=== PATIENT | male | born 1940 | race Caucasian/White ===

== ENCOUNTER 2017-02-11 10:09 | Emergency (ER) | payer MEDICARE, BC ==
[2017-02-11 11:01] VITALS: BP 165/67
[2017-02-11] MEDS ORDERED: Ketorolac 60 MG/2 ML SDV IM ONE (11:43)
--- NOTE | 2017-02-11 11:47 | EDM.PDOC ---
ED HPI GENERAL MEDICAL PROBLEM - General Chief Complaint: Back Pain or Injury Stated Complaint: BACK PAIN Time Seen by Provider: 02/11/17 11:00 Source of Information: Reports: Patient History Limitations: Reports: No Limitations - History of Present Illness INITIAL COMMENTS - FREE TEXT/NARRATIVE: pt fell down about 6 steps on Tuesday and he continues to have pain in the upper lumbar more on the left side. Onset: Gradual, Other ( Pt fell on tuesday. ) Duration: Day(s):, Other ( Pt is hurting alot when he gets up and down. ) Location: Reports: Back Associated Symptoms: Reports: No Other Symptoms, Other (pt has no radicular pain. ) - Related Data Allergies Allergy/AdvReac Type Severity Reaction Status Date / Time No Known Allergies Allergy Verified 02/11/17 11:02 Home Meds: Home Meds Metoprolol Succinate [Toprol XL 100mg] 100 mg PO QAM 11/19/12 [History] Potassium Chloride [Klor-Con M20] 20 meq PO QAM 11/19/12 [History] amLODIPine [Norvasc] 10 mg PO QAM 12/18/12 [History] hydrALAZINE [Apresoline] 75 mg PO BID 12/18/12 [History] Pravastatin Sodium [Pravachol] 1 tab PO BEDTIME 10/10/15 [History] Clopidogrel Bisulfate [Clopidogrel] 1 tab PO DAILY 02/11/17 [History] Past Medical History Cardiovascular History: Reports: High Cholesterol, Hypertension Musculoskeletal History: Reports: Back Pain, Chronic - Past Surgical History Cardiovascular Surgical History: Reports: Coronary Artery Stent Social & Family History - Tobacco Use Smoking Status *Q: Never Smoker Years of Tobacco use: 20 Used Tobacco, but Quit: No Month Tobacco Last Used: 11/1992 Second Hand Smoke Exposure: No - Alcohol Use Days Per Week of Alcohol Use: 7 Number of Drinks Per Day: 2 Total Drinks Per Week: 14 - Recreational Drug Use Recreational Drug Use: No ED ROS GENERAL - Review of Systems Review Of Systems: See Below Constitutional: Reports: No Symptoms HEENT: Reports: No Symptoms Respiratory: Reports: No Symptoms Cardiovascular: Reports: No Symptoms Endocrine: Reports: No Symptoms GI/Abdominal: Reports: No Symptoms : Reports: No Symptoms Musculoskeletal: Reports: Other (pt has pain in his upper lumbnar area. ) Skin: Reports: No Symptoms ED EXAM,LOWER BACK PAIN/INJURY - Physical Exam Exam: See Below Text/Narrative:: pt arrived with pain in his uppr lumbar area. He fell On Tuesday and landed on his but. Exam Limited By: No Limitations General Appearance: Alert, Anxious Ears: Normal TMs Nose: Normal Inspection Throat/Mouth: Normal Inspection Head: Atraumatic Neck: Normal Inspection Respiratory/Chest: No Respiratory Distress Cardiovascular: Regular Rate, Rhythm GI/Abdominal: Soft, Non-Tender (Male) Exam: Deferred Rectal (Males) Exam: Deferred Back Exam: Other (pt is tender on the upper lumbar area. It is more on the left than the right. He has some muscle spasm that can be felt. he was given torodol 60mg im. ) Extremities: Normal Inspection Course - Vital Signs Last Recorded V/S: Last Vital Signs Temp 36.3 C 02/11/17 11:15 Pulse 69 02/11/17 11:15 Resp 16 02/11/17 11:15 BP 165/67 H 02/11/17 11:15 Pulse Ox 100 02/11/17 11:15 - Orders/Labs/Meds Meds: Medications Discontinued Medications Generic Name Dose Route Start Last Admin Trade Name Freq PRN Reason Stop Dose Admin Ketorolac Tromethamine 60 mg 02/11/17 11:43 02/11/17 12:02 Toradol IM 02/11/17 11:44 60 mg ONETIME ONE Administration - Re-Assessments/Exams Free Text/Narrative Re-Assessment/Exam: 02/11/17 12:37 lumbar spine series was obtained which showed a compression fracture at L2. This is not an unstable fracture/ Departure - Departure Time of Disposition: 12:38 Disposition: Home, Self-Care 01 Condition: Fair Clinical Impression: Compression fracture of L2 - Discharge Information Referrals: Cody Frances MD [Primary Care Provider] - Forms: ED Department Discharge Care Plan Goals: cool pack to the lumbar area, flexeril 10 mg hs, tylenol for mild pain. norco 5 /325 q6h prn for pain --severe. avoid lifting and pulling. Use prunes and a stool softner.
--- NOTE | 2017-02-11 12:31 | CR ---
Lumbar Spine Min 4V HISTORY: recent fall and pain. FINDINGS: Vertebral body alignment is satisfactory. There is mild wedge compression fracture of the L 2 vertebral body. This was not present on the prior MRI lumbar spine exam dated 11/30/2010. No other compression fractures identified. There is prominent degenerative narrowing of the disc space at L5-S 1 with small anterior osteophytes and a couple millimeters of anterior subluxation. I cannot definiti vely identify pars interarticularis defects. Prominent atherosclerotic calcification is seen diffusel y along the abdominal aorta and visualized iliac vasculature. Endovascular stents are noted in the co mmon iliac artery bilaterally. IMPRESSION: 1. Degenerative changes most prominent at L4-5. 2. Mild wedge compression fracture of the L2 vertebral body has occurred since the MRI study of 11/30. This could be acute and is in the area of the patient's pain. 3. Possible mild grade 1 spondylolisthesis L4-5. 4. Atherosclerotic aorta and iliac vasculature. Endovascular stents are noted in the common iliac art tiffanie bilaterally.
== END 2017-02-11 13:53 | disposition home or self-care (01) ==
LOC: JP.ED 10:09
DX: S32.020A Wedge compression fracture of second lumbar vertebra, initial encounter for closed fracture (principal); I10 Essential (primary) hypertension; E78.00 Pure hypercholesterolemia, unspecified; Z87.891 Personal history of nicotine dependence; Z79.899 Other long term (current) drug therapy; W10.9XXA Fall (on) (from) unspecified stairs and steps, initial encounter
CPT/HCPCS: 72110; 96372; 99284; J1885; 99283

== ENCOUNTER 2018-08-03 13:37 | Emergency (ER) | payer MEDICARE, BC ==
--- NOTE | 2018-08-03 15:21 | EDM.PDOC ---
ED HPI GENERAL MEDICAL PROBLEM - General Chief Complaint: Lower Extremity Injury/Pain Stated Complaint: LEFT HIP PAIN Time Seen by Provider: 08/03/18 15:07 Source of Information: Reports: Patient History Limitations: Reports: No Limitations - History of Present Illness INITIAL COMMENTS - FREE TEXT/NARRATIVE: Patient presents describing worsening left hip pain or the last 10 days in the context of a left hip fracture in February of this year while living in [place]. He went to rehabilitation for several weeks, eventually transitioning to a walker and then a cane. He returned to this area in early May and the hip began to be uncomfortable. He was seen in the [facility] orthopedic clinic 10 days ago and was told that an MRI found that his hip was fractured. Further follow-up with orthopedics as arranged for next week. Because of worsening pain in the hip, he has now returned to the use of a walker. If he is sitting or lying down, he has no hip discomfort. Only when he is standing or walking is the hip very uncomfortable. He states that at times it feels as though the left leg is just going to give out. When not standing on his leg, he feels as though he has normal strength and range of motion in the hip, knee, ankle. Onset: Gradual Duration: Week(s): (2) Location: Reports: Lower Extremity, Left Quality: Reports: Ache, Burning, Sharp Severity: Moderate Improves with: Reports: None Worsens with: Reports: Movement Associated Symptoms: Reports: No Other Symptoms Left Hip Pain Score (Numeric/FACES): 8 - Related Data Allergies Allergy/AdvReac Type Severity Reaction Status Date / Time No Known Allergies Allergy Verified 08/03/18 15:31 Home Meds: Home Meds Metoprolol Succinate [Toprol XL 100mg] 100 mg PO QAM 11/19/12 [History] Potassium Chloride [Klor-Con M20] 20 meq PO QAM 11/19/12 [History] amLODIPine [Norvasc] 10 mg PO QAM 12/18/12 [History] hydrALAZINE [Apresoline] 75 mg PO BID 12/18/12 [History] Pravastatin Sodium [Pravachol] 1 tab PO BEDTIME 10/10/15 [History] Clopidogrel Bisulfate [Clopidogrel] 1 tab PO DAILY 02/11/17 [History] Past Medical History Cardiovascular History: Reports: High Cholesterol, Hypertension Musculoskeletal History: Reports: Back Pain, Chronic - Past Surgical History Cardiovascular Surgical History: Reports: Coronary Artery Stent Review of Systems - Review of Systems Review Of Systems: ROS reveals no pertinent complaints other than HPI. ED EXAM, GENERAL - Physical Exam Exam: See Below Exam Limited By: No Limitations General Appearance: Alert, No Apparent Distress (While seated.) Extremities: Other (Palpation along the lateral aspect of the hip is slightly uncomfortable. With the patient's seated on the ER cart, circumduction of the hip is not really uncomfortable. Passive flexion and extension of the hip is not uncomfortable.) Neurological: No Motor/Sensory Deficits Course - Vital Signs Last Recorded V/S: Last Vital Signs Temp 35.0 C L 08/03/18 15:25 Pulse 69 08/03/18 15:25 Resp 16 08/03/18 15:25 BP 121/60 08/03/18 15:25 Pulse Ox 96 08/03/18 15:25 - Re-Assessments/Exams Free Text/Narrative Re-Assessment/Exam: 08/03/18 22:30 It was unclear to me why an MRI that told him he had a hip fracture was not used to provide a different plan of care as his orthopedic visit? I will obtain a repeat left hip and pelvis set of images to verify status of the bones. No acute bony injury was seen on this imaging. I obtained the radiologist's report of his hip region and what was actually described was a fracture of the acetabulum which extended into the ileum. There was avascular necrosis noted in both femoral heads but especially so the left one. This would certainly explain pain with standing but little or no pain when not weightbearing status. I return to review these findings with the patient and actually gave him a copy of the MRI report. I fidelia a picture of where the fracture was through the acetabular region and also described the concept of avascular necrosis. He declines any current pain medication. I recommend he use his walker at all times when ambulatory. Fish keep his scheduled orthopedic appointments next week. He was discharged in good condition. Departure - Departure Time of Disposition: 17:32 Disposition: Home, Self-Care 01 Condition: Good Clinical Impression: Hip pain, left, Avascular necrosis of bone of left hip, Left acetabular fracture - Discharge Information *PRESCRIPTION DRUG MONITORING PROGRAM REVIEWED*: Not Applicable *COPY OF PRESCRIPTION DRUG MONITORING REPORT IN PATIENT ARNIE: Not Applicable Instructions: Avascular Necrosis Referrals: Cody Frances MD [Primary Care Provider] - Forms: ED Department Discharge Additional Instructions: Use your walker whenever you're up walking to improve stability and reduce risk of falling. Keep scheduled orthopedic appointments next week. Avoid excessive time up on her feet. Use Tylenol regularly for pain. If you have a sudden increase in pain in her left hip, this could mean that the hip bone is fractured completely. Return to ER if feeling worse in anyway.
[2018-08-03 15:22] VITALS: BP 121/60
--- NOTE | 2018-08-03 16:47 | CRLCR ---
INDICATION: Increasing left hip pain. TECHNIQUE: Single view pelvis and 2 view left hip. FINDINGS: Hip joints are symmetric and relatively well preserved. There is no fracture is identified. SI joints are symmetric and preserved. Vascular calcifications are noted bilaterally. IMPRESSION: Hip joints are symmetric and relatively well preserved. SI joints are preserved. Vascular calcifications are noted. No fracture is seen. Dictated by Florin Vanessa MD @ 08/03/2018 4:45:32 PM Dictated by: Florin Vanessa MD @ 08/03/2018 16:45:41 (Electronically Signed)
== END 2018-08-03 17:43 | disposition home or self-care (01) ==
LOC: JP.ED 13:37
DX: S32.402A Unspecified fracture of left acetabulum, initial encounter for closed fracture (principal); M87.28 Osteonecrosis due to previous trauma, other site; I10 Essential (primary) hypertension; E78.00 Pure hypercholesterolemia, unspecified; Z79.899 Other long term (current) drug therapy; X58.XXXA Exposure to other specified factors, initial encounter
CPT/HCPCS: 73502-LT; 99283-25

== ENCOUNTER 2018-08-14 08:21 | Inpatient (IN) | payer MEDICARE, BC ==
[~2018-08-14 08:21] MED LIST: Povidone-Iodine 10% Soln 118.25 ML Bottle ONE
[2018-08-14] MEDS ORDERED: Nozin Nasal Sanitizer NASBOTH SCH (09:00)
[2018-08-14] MEDS ORDERED: Lactated Ringers 1,000 ML IV SCH (09:30)
[2018-08-14] MEDS ORDERED: ceFAZolin 2 GM in Premix Bag 1 BAG IV ONE (10:00)
[2018-08-14] MEDS ORDERED: Tranexamic Acid 900 MG in Sodium Chloride 0.9% 50 ML IV SCH (10:15)
[2018-08-14] MEDS ORDERED: Neostigmine Methylsulfate 1 MG/ML 5 ML Syringe ONE (12:13)
[2018-08-14] MEDS ORDERED: Dexamethasone 4 MG/ML SDV ONE (12:13)
[2018-08-14] MEDS ORDERED: Glycopyrrolate 0.2 MG/ML 5 ML MDV ONE (12:13)
[2018-08-14] MEDS ORDERED: Rocuronium 50 MG/5 ML Vial ONE (12:13)
[2018-08-14] MEDS ORDERED: Ondansetron 4 MG/2 ML SDV ONE (12:13)
[2018-08-14] MEDS ORDERED: fentaNYL 250 MCG/5 ML SDV ONE ×2 (12:13→13:10)
[2018-08-14] MEDS ORDERED: Succinylcholine 200 MG/10 ML MDV ONE (12:13)
[2018-08-14] MEDS ORDERED: Propofol 200 MG/20 ML SDV ONE (12:13)
[2018-08-14] MEDS ORDERED: Lactated Ringers 1,000 ML ONE (13:45)
[2018-08-14] MEDS ORDERED: Bupivacaine 0.5% 50 ML MDV ONE (13:51)
[2018-08-14] MEDS: Acetaminophen/oxyCODONE 325-5 MG Tab PO PRN ×2 (15:22→20:33)
--- NOTE | 2018-08-14 15:43 | CR ---
Pelvis 1V or 2V: 08/14/2018 2:17 PM INDICATION: Post op left total hip COMPARISON: Preoperative radiographs performed 08/03/2018. TECHNIQUE: Single AP view of the pelvis FINDINGS: Changes of left total hip arthroplasty are present without apparent hardware complication or periprosthetic fracture. Moderate osteoarthritis of the SI joints, pubic symphysis, and right hip. IMPRESSION: Changes of left total hip arthroplasty without complication.
[2018-08-14] MEDS ORDERED: ceFAZolin 1 GM Vial ONE (17:41)
[2018-08-14] MEDS ORDERED: Sodium Chloride 0.9% 50 ML ONE (17:41)
[2018-08-14] MEDS: ceFAZolin 1 GM in Premix Bag 1 BAG IV SCH ×2 (17:49→20:38)
[2018-08-14] MEDS ORDERED: Calcium Carbonate 500 MG Tab.Chew PO PRN (18:09)
[2018-08-14] MEDS: hydrALAZINE 25 MG Tab PO SCH (20:34)
[2018-08-14] MEDS: Nozin Nasal Sanitizer NASBOTH SCH (20:35)
[2018-08-14] MEDS: Sodium Chloride 0.9% 1,000 ML IV SCH (20:37)
[2018-08-14] MEDS: Morphine 2 MG/ML Syringe IVPUSH PRN (23:14)
[2018-08-15] MEDS ORDERED: Lidocaine 2% Jelly 10 ML Urojet MUCMEM ONE ×2 (00:43→21:48)
[2018-08-15] MEDS ORDERED: Benzocaine/Cetylpyridinium/Menthol Lozenge MUCMEM PRN (01:12)
[2018-08-15] MEDS: Acetaminophen/oxyCODONE 325-5 MG Tab PO PRN ×5 (01:35→23:36)
[2018-08-15] MEDS: ceFAZolin 1 GM in Premix Bag 1 BAG IV SCH ×2 (01:35→10:26)
[2018-08-15] MEDS: Sodium Chloride 0.9% 1,000 ML IV SCH ×2 (05:04→12:52)
[2018-08-15] MEDS: Ferrous Sulfate 325 MG Tab PO SCH (08:35)
[2018-08-15] MEDS: Nozin Nasal Sanitizer NASBOTH SCH ×2 (08:35→20:20)
[2018-08-15] MEDS: Aspirin 81 MG Tab.Chew PO SCH (08:35)
[2018-08-15] MEDS: Metoprolol Succinate 50 MG Tab.ER PO SCH (08:36)
[2018-08-15] MEDS: Pravastatin 20 MG Tab PO SCH (08:36)
[2018-08-15] MEDS: Potassium Chloride 20 MEQ Tab.ER PO SCH (08:36)
[2018-08-15] MEDS: Clopidogrel 75 MG Tab PO SCH (08:39)
[2018-08-15] MEDS: hydrALAZINE 25 MG Tab PO SCH ×2 (08:39→20:20)
[2018-08-15] MEDS: amLODIPine 5 MG Tab PO SCH (08:40)
[2018-08-15] MEDS ORDERED: Magnesium Hydroxide 400 MG/5 ML Susp 30 ML Cup PO PRN (12:59)
[2018-08-15] MEDS: Docusate Sodium 100 MG Cap PO PRN (19:57)
[2018-08-15] MEDS: Acetaminophen 325 MG Tab PO PRN (19:57)
[2018-08-15] MEDS ORDERED: Tamsulosin 0.4 MG Cap.ER PO ONE (20:12)
[2018-08-15] MEDS: Morphine 2 MG/ML Syringe IVPUSH PRN (22:02)
[2018-08-15] MEDS: Melatonin 3 MG Tab PO PRN (22:02)
[2018-08-16] MEDS: Acetaminophen/HYDROcodone 325-5 MG Tab PO PRN (07:39)
[2018-08-16] MEDS: Ferrous Sulfate 325 MG Tab PO SCH (07:40)
[2018-08-16] MEDS: Potassium Chloride 20 MEQ Tab.ER PO SCH (09:01)
[2018-08-16] MEDS: Clopidogrel 75 MG Tab PO SCH (09:01)
[2018-08-16] MEDS: Pravastatin 20 MG Tab PO SCH (09:01)
[2018-08-16] MEDS: amLODIPine 5 MG Tab PO SCH (09:01)
[2018-08-16] MEDS: Aspirin 81 MG Tab.Chew PO SCH (09:01)
[2018-08-16] MEDS: hydrALAZINE 25 MG Tab PO SCH ×2 (09:01→20:25)
[2018-08-16] MEDS: Metoprolol Succinate 50 MG Tab.ER PO SCH (09:01)
[2018-08-16] MEDS: Nozin Nasal Sanitizer NASBOTH SCH ×2 (09:02→20:22)
[2018-08-16] MEDS: Acetaminophen/oxyCODONE 325-5 MG Tab PO PRN ×2 (11:34→20:26)
[2018-08-16] MEDS: Docusate Sodium 100 MG Cap PO PRN (11:34)
--- NOTE | 2018-08-16 11:35 | PCM.SURGPN ---
- General Info Date of Service: 08/15/18 Date of Surgery/Procedure: 08/14/18 POD#: 1 Post-Op Diagnosis: S/P left NATHALIA Functional Status: Reports: Tolerating Diet, Other (Pain partially controlled) - Review of Systems General: Reports: No Symptoms HEENT: Reports: No Symptoms Pulmonary: Reports: No Symptoms Cardiovascular: Reports: No Symptoms Gastrointestinal: Reports: No Symptoms Genitourinary: Reports: Retention Skin: Reports: No Symptoms Neurological: Reports: No Symptoms Psychiatric: Reports: No Symptoms - Patient Data Vitals - Most Recent: Last Vital Signs Temp 36.8 C 08/16/18 07:33 Pulse 76 08/16/18 09:01 Resp 18 08/16/18 07:33 BP 123/74 08/16/18 09:01 Pulse Ox 100 08/16/18 07:33 Weight - Most Recent: 89.811 kg I&O - Last 24 Hours: Intake & Output 08/15/18 08/16/18 08/16/18 22:59 06:59 14:59 Intake Total 2433 550 Output Total 900 400 Balance 2433 -350 -400 Med Orders - Current: Current Medications Acetaminophen (Tylenol) 650 mg PO Q4H PRN PRN Reason: Pain/Fever Last Admin: 08/15/18 19:57 Dose: 650 mg Hydrocodone Bitart/Acetaminophen ([place] 325-5 Mg) 1 tab PO Q3H PRN PRN Reason: Pain (mild 1-3) Last Admin: 08/16/18 07:39 Dose: 1 tab Amlodipine Besylate (Norvasc) 5 mg PO DAILY [facility] Last Admin: 08/16/18 09:01 Dose: 5 mg Aspirin (Aspirin) 81 mg PO DAILY [facility] Last Admin: 08/16/18 09:01 Dose: 81 mg Bandage/Support Products ( Nasal Resource Conservationist) 1 applic NASBOTH BID [facility] Stop: 08/21/18 21:01 Last Admin: 08/16/18 09:02 Dose: 1 applic Benzocaine/Menthol (Cepacol Sore Throat) 1 lozenge MUCMEM Q1H PRN PRN Reason: Sore Throat Last Admin: 08/15/18 05:04 Dose: 1 richy Calcium Carbonate/Glycine (Tums) 500 mg PO Q2H PRN PRN Reason: Indigestion Last Admin: 08/14/18 19:01 Dose: 500 mg Clopidogrel Bisulfate (Plavix) 75 mg PO DAILY [facility] Last Admin: 08/16/18 09:01 Dose: 75 mg Docusate Sodium (Colace) 100 mg PO BID PRN PRN Reason: Constipation Last Admin: 08/15/18 19:57 Dose: 100 mg Ferrous Sulfate (Ferrous Sulfate) 325 mg PO DAILY@0800 [facility] Last Admin: 08/16/18 07:40 Dose: 325 mg Hydralazine HCl (Apresoline) 75 mg PO BID [facility] Last Admin: 08/16/18 09:01 Dose: 75 mg Magnesium Hydroxide (Milk Of Magnesia) 30 ml PO Q8H PRN PRN Reason: Constipation Melatonin (Melatonin) 9 mg PO BEDTIME PRN PRN Reason: Sleep Last Admin: 08/15/18 22:02 Dose: 9 mg Metoprolol Succinate (Toprol Xl) 100 mg PO QAM [facility] Last Admin: 08/16/18 09:01 Dose: 100 mg Morphine Sulfate (Morphine) 2 mg IVPUSH Q1H PRN PRN Reason: Pain (severe 7-10) Last Admin: 08/15/18 22:02 Dose: 2 mg Oxycodone/Acetaminophen (Percocet 325-5 Mg) 0 tab PO Q4H PRN PRN Reason: Pain (severe 7-10) Last Admin: 08/15/18 23:36 Dose: 2 tab Potassium Chloride (Klor-Con M20) 20 meq PO QAM [facility] Last Admin: 08/16/18 09:01 Dose: 20 meq Pravastatin Sodium (Pravachol) 20 mg PO DAILY [facility] Last Admin: 08/16/18 09:01 Dose: 20 mg Tamsulosin HCl (Flomax) 0.4 mg PO BEDTIME [facility] Discontinued Medications Bandage/Support Products ( Nasal Resource Conservationist) 1 applic NASBOTH BID [facility] Last Admin: 08/14/18 09:10 Dose: 1 applic Bupivacaine HCl (Marcaine 0.5%) Confirm Administered Dose 50 ml .ROUTE .STK-MED ONE Stop: 08/14/18 13:52 Cefazolin Sodium (Ancef) Confirm Administered Dose 1 gm .ROUTE .STK-MED ONE Stop: 08/14/18 17:42 Last Admin: 08/14/18 17:47 Dose: 1 gm Dexamethasone (Dexamethasone) Confirm Administered Dose 4 mg .ROUTE .STK-MED ONE Stop: 08/14/18 12:14 Fentanyl (Sublimaze) Confirm Administered Dose 250 mcg .ROUTE .[facility] ONE Stop: 08/14/18 12:14 Fentanyl (Sublimaze) Confirm Administered Dose 250 mcg .ROUTE .[facility] ONE Stop: 08/14/18 13:11 Glycopyrrolate (Robinul) Confirm Administered Dose 1 mg .ROUTE .STK-MED ONE Stop: 08/14/18 12:14 Cefazolin Sodium/Dextrose 2 gm (/ Premix) 50 mls @ 100 mls/hr IV ONETIME ONE Stop: 08/14/18 10:29 Last Admin: 08/14/18 12:35 Dose: 100 mls/hr Lactated Ringer's (Ringers, Lactated) 1,000 mls @ 75 mls/hr IV ASDIRECTED [facility] Last Admin: 08/14/18 09:36 Dose: 75 mls/hr Tranexamic Acid 900 mg/ Sodium (Chloride) 59 mls @ 236 mls/hr IV Q3H [facility] Stop: 08/14/18 13:10 Last Admin: 08/14/18 13:00 Dose: 236 mls/hr Lactated Ringer's (Ringers, Lactated) Confirm Administered Dose 1,000 mls @ as directed .ROUTE .[facility]-MED ONE Stop: 08/14/18 13:46 Cefazolin Sodium/Dextrose 1 gm (/ Premix) 50 mls @ 200 mls/hr IV Q8H [facility] Stop: 08/15/18 10:14 Last Admin: 08/15/18 10:26 Dose: 200 mls/hr Sodium Chloride (Normal Saline) 1,000 mls @ 125 mls/hr IV ASDIRECTED [facility] Last Admin: 08/15/18 12:52 Dose: 125 mls/hr Sodium Chloride (Normal Saline) Confirm Administered Dose 50 mls @ as directed .ROUTE .[facility] ONE Stop: 08/14/18 17:42 Last Admin: 08/14/18 17:49 Dose: 100 mls/hr Lidocaine HCl (Xylocaine 2% Jelly) 10 ml MUCMEM ONETIME ONE Stop: 08/15/18 00:44 Last Admin: 08/15/18 00:54 Dose: 10 ml Lidocaine HCl (Xylocaine 2% Jelly) 10 ml MUCMEM ONETIME ONE Stop: 08/15/18 21:49 Last Admin: 08/15/18 22:05 Dose: 10 ml Neostigmine Methylsulfate (Neostigmine) Confirm Administered Dose 5 mg .ROUTE .STK-MED ONE Stop: 08/14/18 12:14 Ondansetron HCl (Zofran) Confirm Administered Dose 4 mg .ROUTE .STK-MED ONE Stop: 08/14/18 12:14 Povidone Iodine (Betadine 10% Soln) Confirm Administered Dose 1 ml .ROUTE .STK- MED ONE Stop: 08/14/18 07:03 Last Admin: 08/14/18 13:20 Dose: 1 ml Propofol (Diprivan 20 Ml) Confirm Administered Dose 200 mg .ROUTE .STK-MED ONE Stop: 08/14/18 12:14 Rocuronium [place] (Zemuron) Confirm Administered Dose 50 mg .ROUTE .STK-MED ONE Stop: 08/14/18 12:14 Succinylcholine Chloride (Quelicin) Confirm Administered Dose 200 mg .ROUTE .STK -MED ONE Stop: 08/14/18 12:14 Tamsulosin HCl (Flomax) 0.4 mg PO ONETIME ONE Stop: 08/15/18 20:13 Last Admin: 08/15/18 20:20 Dose: 0.4 mg - Exam Wound/Incisions: Dressing Dry and Intact General: Alert, Oriented HEENT: Pupils Equal Neck: Supple Lungs: Clear to Auscultation, Normal Respiratory Effort Cardiovascular: Regular Rate, Regular Rhythm GI/Abdominal Exam: Normal Bowel Sounds, Soft, Non-Tender, No Organomegaly, No Distention, No Abnormal Bruit, No Mass, Pelvis Stable Extremities: Other (minimal swelling, no signs of DVT) Skin: Warm, Dry, Intact Neurological: No New Focal Deficit Psy/Mental Status: Alert, Normal Affect, Normal Mood - Problem List & Annotations (1) Status post total hip replacement, left SNOMED Code(s): 380587407277, 023652611274 Code(s): Z96.642 - PRESENCE OF LEFT ARTIFICIAL HIP JOINT Status: Acute Current Visit: Yes (2) Avascular necrosis of bone of left hip SNOMED Code(s): 612825488 Code(s): M87.052 - IDIOPATHIC ASEPTIC NECROSIS OF LEFT FEMUR Status: Acute Current Visit: No (3) Postoperative anemia due to acute blood loss SNOMED Code(s): 66451391820743229 Code(s): D62 - ACUTE POSTHEMORRHAGIC ANEMIA Status: Acute Current Visit: Yes Annotation/Comment:: Intra-op and post-op bleeding - Problem List Review Problem List Initiated/Reviewed/Updated: Yes - My Orders Last 24 Hours: Active Orders 24 hr Category Date Time Status Docusate Sodium [Colace] Med 08/15/18 12:59 Active 100 mg PO BID PRN Magnesium Hydroxide [Milk of Magnesia] Med 08/15/18 12:59 Active 30 ml PO Q8H PRN Melatonin Med 08/15/18 21:46 Active 9 mg PO BEDTIME PRN Tamsulosin [Flomax] Med 08/16/18 21:00 Ordered 0.4 mg PO BEDTIME Convert IV to Saline Lock [OM.PC] Routine Oth 08/15/18 20:11 Ordered Medication Orders Acetaminophen (Tylenol) 650 mg PO Q4H PRN PRN Reason: Pain/Fever Last Admin: 08/15/18 19:57 Dose: 650 mg Hydrocodone Bitart/Acetaminophen ([place] 325-5 Mg) 1 tab PO Q3H PRN PRN Reason: Pain (mild 1-3) Last Admin: 08/16/18 07:39 Dose: 1 tab Amlodipine Besylate (Norvasc) 5 mg PO DAILY [facility] Last Admin: 08/16/18 09:01 Dose: 5 mg Admin: 08/15/18 08:40 Dose: 5 mg Aspirin (Aspirin) 81 mg PO DAILY [facility] Last Admin: 08/16/18 09:01 Dose: 81 mg Admin: 08/15/18 08:35 Dose: 81 mg Bandage/Support Products ( Nasal Resource Conservationist) 1 applic NASBOTH BID [facility] Stop: 08/21/18 21:01 Last Admin: 08/16/18 09:02 Dose: 1 applic Admin: 08/15/18 20:20 Dose: 1 applic Admin: 08/15/18 08:35 Dose: 1 applic Admin: 08/14/18 20:35 Dose: 1 applic Benzocaine/Menthol (Cepacol Sore Throat) 1 lozenge MUCMEM Q1H PRN PRN Reason: Sore Throat Last Admin: 08/15/18 05:04 Dose: 1 richy Calcium Carbonate/Glycine (Tums) 500 mg PO Q2H PRN PRN Reason: Indigestion Last Admin: 08/14/18 19:01 Dose: 500 mg Clopidogrel Bisulfate (Plavix) 75 mg PO DAILY [facility] Last Admin: 08/16/18 09:01 Dose: 75 mg Admin: 08/15/18 08:39 Dose: 75 mg Docusate Sodium (Colace) 100 mg PO BID PRN PRN Reason: Constipation Last Admin: 08/15/18 19:57 Dose: 100 mg Ferrous Sulfate (Ferrous Sulfate) 325 mg PO DAILY@0800 [facility] Last Admin: 08/16/18 07:40 Dose: 325 mg Admin: 08/15/18 08:35 Dose: 325 mg Hydralazine HCl (Apresoline) 75 mg PO BID [facility] Last Admin: 08/16/18 09:01 Dose: 75 mg Admin: 08/15/18 20:20 Dose: 75 mg Admin: 08/15/18 08:39 Dose: 75 mg Admin: 08/14/18 20:34 Dose: 75 mg Magnesium Hydroxide (Milk Of Magnesia) 30 ml PO Q8H PRN PRN Reason: Constipation Melatonin (Melatonin) 9 mg PO BEDTIME PRN PRN Reason: Sleep Last Admin: 08/15/18 22:02 Dose: 9 mg Metoprolol Succinate (Toprol Xl) 100 mg PO QAM [facility] Last Admin: 08/16/18 09:01 Dose: 100 mg Admin: 08/15/18 08:36 Dose: 100 mg Morphine Sulfate (Morphine) 2 mg IVPUSH Q1H PRN PRN Reason: Pain (severe 7-10) Last Admin: 08/15/18 22:02 Dose: 2 mg Admin: 08/14/18 23:14 Dose: 2 mg Oxycodone/Acetaminophen (Percocet 325-5 Mg) 0 tab PO Q4H PRN PRN Reason: Pain (severe 7-10) Last Admin: 08/15/18 23:36 Dose: 2 tab Admin: 08/15/18 14:08 Dose: 1 tab Admin: 08/15/18 10:33 Dose: 2 tab Admin: 08/15/18 06:20 Dose: 2 tab Admin: 08/15/18 01:35 Dose: 2 tab Admin: 08/14/18 20:33 Dose: 2 tab Admin: 08/14/18 15:22 Dose: 2 tab Potassium Chloride (Klor-Con M20) 20 meq PO QAM [facility] Last Admin: 08/16/18 09:01 Dose: 20 meq Admin: 08/15/18 08:36 Dose: 20 meq Pravastatin Sodium (Pravachol) 20 mg PO DAILY [facility] Last Admin: 08/16/18 09:01 Dose: 20 mg Admin: 08/15/18 08:36 Dose: 20 mg Tamsulosin HCl (Flomax) 0.4 mg PO BEDTIME [facility] - Assessment Assessment (Free Text/Narrative):: Unable to void last night, Eid placed - Plan Plan (Free Text/Narrative):: Up with PT/OT, D/C [place]
--- NOTE | 2018-08-16 11:44 | PCM.SURGPN ---
- General Info Date of Service: 08/16/18 Date of Surgery/Procedure: 08/14/18 POD#: 2 Post-Op Diagnosis: S/P Left NATHALIA Functional Status: Reports: Tolerating Diet, Ambulating - Review of Systems General: Reports: No Symptoms HEENT: Reports: No Symptoms Pulmonary: Reports: No Symptoms Cardiovascular: Reports: No Symptoms Gastrointestinal: Reports: No Symptoms Genitourinary: Reports: Retention Musculoskeletal: Reports: Other (Dressing changed, no drainage, one small spot of fresh blood) Skin: Reports: No Symptoms Neurological: Reports: Confusion, Other (Confused last night, cleared this am, may be contributed to by urinary retention) Psychiatric: Reports: No Symptoms - Patient Data Vitals - Most Recent: Last Vital Signs Temp 36.8 C 08/16/18 10:59 Pulse 85 08/16/18 10:59 Resp 18 08/16/18 10:59 BP 132/70 08/16/18 10:59 Pulse Ox 100 08/16/18 10:59 Weight - Most Recent: 89.811 kg I&O - Last 24 Hours: Intake & Output 08/15/18 08/16/18 08/16/18 22:59 06:59 14:59 Intake Total 2433 550 Output Total 900 400 Balance 2433 -350 -400 Med Orders - Current: Current Medications Acetaminophen (Tylenol) 650 mg PO Q4H PRN PRN Reason: Pain/Fever Last Admin: 08/15/18 19:57 Dose: 650 mg Hydrocodone Bitart/Acetaminophen ([place] 325-5 Mg) 1 tab PO Q3H PRN PRN Reason: Pain (mild 1-3) Last Admin: 08/16/18 07:39 Dose: 1 tab Amlodipine Besylate (Norvasc) 5 mg PO DAILY [facility] Last Admin: 08/16/18 09:01 Dose: 5 mg Aspirin (Aspirin) 81 mg PO DAILY [facility] Last Admin: 08/16/18 09:01 Dose: 81 mg Bandage/Support Products ( Nasal Embedded Firmware Developer) 1 applic NASBOTH BID [facility] Stop: 08/21/18 21:01 Last Admin: 08/16/18 09:02 Dose: 1 applic Benzocaine/Menthol (Cepacol Sore Throat) 1 lozenge MUCMEM Q1H PRN PRN Reason: Sore Throat Last Admin: 08/15/18 05:04 Dose: 1 richy Calcium Carbonate/Glycine (Tums) 500 mg PO Q2H PRN PRN Reason: Indigestion Last Admin: 08/14/18 19:01 Dose: 500 mg Clopidogrel Bisulfate (Plavix) 75 mg PO DAILY [facility] Last Admin: 08/16/18 09:01 Dose: 75 mg Docusate Sodium (Colace) 100 mg PO BID PRN PRN Reason: Constipation Last Admin: 08/16/18 11:34 Dose: 100 mg Ferrous Sulfate (Ferrous Sulfate) 325 mg PO DAILY@0800 [facility] Last Admin: 08/16/18 07:40 Dose: 325 mg Hydralazine HCl (Apresoline) 75 mg PO BID [facility] Last Admin: 08/16/18 09:01 Dose: 75 mg Magnesium Hydroxide (Milk Of Magnesia) 30 ml PO Q8H PRN PRN Reason: Constipation Melatonin (Melatonin) 9 mg PO BEDTIME PRN PRN Reason: Sleep Last Admin: 08/15/18 22:02 Dose: 9 mg Metoprolol Succinate (Toprol Xl) 100 mg PO QAM [facility] Last Admin: 08/16/18 09:01 Dose: 100 mg Morphine Sulfate (Morphine) 2 mg IVPUSH Q1H PRN PRN Reason: Pain (severe 7-10) Last Admin: 08/15/18 22:02 Dose: 2 mg Oxycodone/Acetaminophen (Percocet 325-5 Mg) 0 tab PO Q4H PRN PRN Reason: Pain (severe 7-10) Last Admin: 08/16/18 11:34 Dose: 2 tab Potassium Chloride (Klor-Con M20) [facility] Last Admin: 08/16/18 09:01 Dose: 20 meq Pravastatin Sodium (Pravachol) 20 mg PO DAILY [facility] Last Admin: 08/16/18 09:01 Dose: 20 mg Tamsulosin HCl (Flomax) 0.4 mg PO BEDTIME [facility] Discontinued Medications Bandage/Support Products ( Nasal Embedded Firmware Developer) 1 applic NASBOTH BID [facility] Last Admin: 08/14/18 09:10 Dose: 1 applic Bupivacaine HCl (Marcaine 0.5%) Confirm Administered Dose 50 ml .ROUTE .STK-MED ONE Stop: 08/14/18 13:52 Cefazolin Sodium (Ancef) Confirm Administered Dose 1 gm .ROUTE .STK-MED ONE Stop: 08/14/18 17:42 Last Admin: 08/14/18 17:47 Dose: 1 gm Dexamethasone (Dexamethasone) Confirm Administered Dose 4 mg .ROUTE .K-MED ONE Stop: 08/14/18 12:14 Fentanyl (Sublimaze) Confirm Administered Dose 250 mcg .ROUTE .[facility]-MED ONE Stop: 08/14/18 12:14 Fentanyl (Sublimaze) Confirm Administered Dose 250 mcg .ROUTE .[facility]-MED ONE Stop: 08/14/18 13:11 Glycopyrrolate (Robinul) Confirm Administered Dose 1 mg .ROUTE .K-MED ONE Stop: 08/14/18 12:14 Cefazolin Sodium/Dextrose 2 gm (/ Premix) 50 mls @ 100 mls/hr IV ONETIME ONE Stop: 08/14/18 10:29 Last Admin: 08/14/18 12:35 Dose: 100 mls/hr Lactated Ringer's (Ringers, Lactated) 1,000 mls @ 75 mls/hr IV ASDIRECTED [facility] Last Admin: 08/14/18 09:36 Dose: 75 mls/hr Tranexamic Acid 900 mg/ Sodium (Chloride) 59 mls @ 236 mls/hr IV Q3H [facility] Stop: 08/14/18 13:10 Last Admin: 08/14/18 13:00 Dose: 236 mls/hr Lactated Ringer's (Ringers, Lactated) Confirm Administered Dose 1,000 mls @ as directed .ROUTE .[facility]-MED ONE Stop: 08/14/18 13:46 Cefazolin Sodium/Dextrose 1 gm (/ Premix) 50 mls @ 200 mls/hr IV Q8H [facility] Stop: 08/15/18 10:14 Last Admin: 08/15/18 10:26 Dose: 200 mls/hr Sodium Chloride (Normal Saline) 1,000 mls @ 125 mls/hr IV ASDIRECTED [facility] Last Admin: 08/15/18 12:52 Dose: 125 mls/hr Sodium Chloride (Normal Saline) Confirm Administered Dose 50 mls @ as directed .ROUTE .STK-MED ONE Stop: 08/14/18 17:42 Last Admin: 08/14/18 17:49 Dose: 100 mls/hr Lidocaine HCl (Xylocaine 2% Jelly) 10 ml MUCMEM ONETIME ONE Stop: 08/15/18 00:44 Last Admin: 08/15/18 00:54 Dose: 10 ml Lidocaine HCl (Xylocaine 2% Jelly) 10 ml MUCMEM ONETIME ONE Stop: 08/15/18 21:49 Last Admin: 08/15/18 22:05 Dose: 10 ml Neostigmine Methylsulfate (Neostigmine) Confirm Administered Dose 5 mg .ROUTE .STK-MED ONE Stop: 08/14/18 12:14 Ondansetron HCl (Zofran) Confirm Administered Dose 4 mg .ROUTE .STK-MED ONE Stop: 08/14/18 12:14 Povidone Iodine (Betadine 10% Soln) Confirm Administered Dose 1 ml .ROUTE .STK- MED ONE Stop: 08/14/18 07:03 Last Admin: 08/14/18 13:20 Dose: 1 ml Propofol (Diprivan 20 Ml) Confirm Administered Dose 200 mg .ROUTE .STK-MED ONE Stop: 08/14/18 12:14 Rocuronium [place] (Zemuron) Confirm Administered Dose 50 mg .ROUTE .STK-MED ONE Stop: 08/14/18 12:14 Succinylcholine Chloride (Quelicin) Confirm Administered Dose 200 mg .ROUTE .STK -MED ONE Stop: 08/14/18 12:14 Tamsulosin HCl (Flomax) 0.4 mg PO ONETIME ONE Stop: 08/15/18 20:13 Last Admin: 08/15/18 20:20 Dose: 0.4 mg - Exam Wound/Incisions: Healing Well General: Alert, Oriented, Cooperative HEENT: Pupils Equal Neck: Supple Lungs: Clear to Auscultation, Normal Respiratory Effort Cardiovascular: Regular Rate, Regular Rhythm GI/Abdominal Exam: Normal Bowel Sounds, Soft, Non-Tender, No Organomegaly, No Distention, No Abnormal Bruit, No Mass, Pelvis Stable Extremities: Other (Circulation good, no signs of DVT) Skin: Warm, Dry, Intact Neurological: No New Focal Deficit Psy/Mental Status: Alert, Normal Affect, Normal Mood - Problem List & Annotations (1) Status post total hip replacement, left SNOMED Code(s): 448940576054, [id number] Code(s): Z96.642 - PRESENCE OF LEFT ARTIFICIAL HIP JOINT Status: Acute Current Visit: Yes (2) Avascular necrosis of bone of left hip SNOMED Code(s): 656606293 Code(s): M87.052 - IDIOPATHIC ASEPTIC NECROSIS OF LEFT FEMUR Status: Acute Current Visit: No (3) Postoperative anemia due to acute blood loss SNOMED Code(s): 59018819884026909 Code(s): D62 - ACUTE POSTHEMORRHAGIC ANEMIA Status: Acute Current Visit: Yes Annotation/Comment:: Intra-op and post-op bleeding - Problem List Review Problem List Initiated/Reviewed/Updated: Yes - My Orders Last 24 Hours: Active Orders 24 hr Category Date Time Status Docusate Sodium [Colace] Med 08/15/18 12:59 Active 100 mg PO BID PRN Magnesium Hydroxide [Milk of Magnesia] Med 08/15/18 12:59 Active 30 ml PO Q8H PRN Melatonin Med 08/15/18 21:46 Active 9 mg PO BEDTIME PRN Tamsulosin [Flomax] Med 08/16/18 21:00 Ordered 0.4 mg PO BEDTIME Convert IV to Saline Lock [OM.PC] Routine Oth 08/15/18 20:11 Ordered Medication Orders Acetaminophen (Tylenol) 650 mg PO Q4H PRN PRN Reason: Pain/Fever Last Admin: 08/15/18 19:57 Dose: 650 mg Hydrocodone Bitart/Acetaminophen (Caro 325-5 Mg) 1 tab PO Q3H PRN PRN Reason: Pain (mild 1-3) Last Admin: 08/16/18 07:39 Dose: 1 tab Amlodipine Besylate (Norvasc) 5 mg PO DAILY [facility] Last Admin: 08/16/18 09:01 Dose: 5 mg Admin: 08/15/18 08:40 Dose: 5 mg Aspirin (Aspirin) 81 mg PO DAILY [facility] Last Admin: 08/16/18 09:01 Dose: 81 mg Admin: 08/15/18 08:35 Dose: 81 mg Bandage/Support Products ( Nasal Embedded Firmware Developer) 1 applic NASBOTH BID [facility] Stop: 08/21/18 21:01 Last Admin: 08/16/18 09:02 Dose: 1 applic Admin: 08/15/18 20:20 Dose: 1 applic Admin: 08/15/18 08:35 Dose: 1 applic Admin: 08/14/18 20:35 Dose: 1 applic Benzocaine/Menthol (Cepacol Sore Throat) 1 lozenge MUCMEM Q1H PRN PRN Reason: Sore Throat Last Admin: 08/15/18 05:04 Dose: 1 richy Calcium Carbonate/Glycine (Tums) 500 mg PO Q2H PRN PRN Reason: Indigestion Last Admin: 08/14/18 19:01 Dose: 500 mg Clopidogrel Bisulfate (Plavix) 75 mg PO DAILY [facility] Last Admin: 08/16/18 09:01 Dose: 75 mg Admin: 08/15/18 08:39 Dose: 75 mg Docusate Sodium (Colace) 100 mg PO BID PRN PRN Reason: Constipation Last Admin: 08/15/18 19:57 Dose: 100 mg Ferrous Sulfate (Ferrous Sulfate) 325 mg PO DAILY@0800 [facility] Last Admin: 08/16/18 07:40 Dose: 325 mg Admin: 08/15/18 08:35 Dose: 325 mg Hydralazine HCl (Apresoline) 75 mg PO BID [facility] Last Admin: 08/16/18 09:01 Dose: 75 mg Admin: 08/15/18 20:20 Dose: 75 mg Admin: 08/15/18 08:39 Dose: 75 mg Admin: 08/14/18 20:34 Dose: 75 mg Magnesium Hydroxide (Milk Of Magnesia) 30 ml PO Q8H PRN PRN Reason: Constipation Melatonin (Melatonin) 9 mg PO BEDTIME PRN PRN Reason: Sleep Last Admin: 08/15/18 22:02 Dose: 9 mg Metoprolol Succinate (Toprol Xl) 100 mg PO QAM [facility] Last Admin: 08/16/18 09:01 Dose: 100 mg Admin: 08/15/18 08:36 Dose: 100 mg Morphine Sulfate (Morphine) 2 mg IVPUSH Q1H PRN PRN Reason: Pain (severe 7-10) Last Admin: 08/15/18 22:02 Dose: 2 mg Admin: 08/14/18 23:14 Dose: 2 mg Oxycodone/Acetaminophen (Percocet 325-5 Mg) 0 tab PO Q4H PRN PRN Reason: Pain (severe 7-10) Last Admin: 08/15/18 23:36 Dose: 2 tab Admin: 08/15/18 14:08 Dose: 1 tab Admin: 08/15/18 10:33 Dose: 2 tab Admin: 08/15/18 06:20 Dose: 2 tab Admin: 08/15/18 01:35 Dose: 2 tab Admin: 08/14/18 20:33 Dose: 2 tab Admin: 08/14/18 15:22 Dose: 2 tab Potassium Chloride (Klor-Con M20) 20 meq PO QAM [facility] Last Admin: 08/16/18 09:01 Dose: 20 meq Admin: 08/15/18 08:36 Dose: 20 meq Pravastatin Sodium (Pravachol) 20 mg PO DAILY [facility] Last Admin: 08/16/18 09:01 Dose: 20 mg Admin: 08/15/18 08:36 Dose: 20 mg Tamsulosin HCl (Flomax) 0.4 mg PO BEDTIME [facility] - Assessment Assessment (Free Text/Narrative):: Difficulty with urinary retention and confusion last night, was able to get up from chair and into bed this am. - Plan Plan (Free Text/Narrative):: Add Flomax, PT/OT today if does well tonight and tomorrow am may be able to discharge tomorrow afternoon.
[2018-08-16] MEDS: Melatonin 3 MG Tab PO PRN (20:28)
[2018-08-16] MEDS ORDERED: Tamsulosin 0.4 MG Cap.ER PO SCH (21:00)
[2018-08-17 08:22] VITALS: BP 152/73; PULSE 86
[2018-08-17] MEDS: Acetaminophen/HYDROcodone 325-5 MG Tab PO PRN (09:15)
[2018-08-17] MEDS: hydrALAZINE 25 MG Tab PO SCH (09:16)
[2018-08-17] MEDS: Nozin Nasal Sanitizer NASBOTH SCH (09:16)
[2018-08-17] MEDS: Metoprolol Succinate 50 MG Tab.ER PO SCH (09:17)
[2018-08-17] MEDS: Potassium Chloride 20 MEQ Tab.ER PO SCH (09:17)
[2018-08-17] MEDS: Pravastatin 20 MG Tab PO SCH (09:17)
[2018-08-17] MEDS: Clopidogrel 75 MG Tab PO SCH (09:17)
[2018-08-17] MEDS: Aspirin 81 MG Tab.Chew PO SCH (09:18)
[2018-08-17] MEDS: amLODIPine 5 MG Tab PO SCH (09:18)
[2018-08-17] MEDS: Ferrous Sulfate 325 MG Tab PO SCH (09:18)
[2018-08-17] MEDS: Acetaminophen 325 MG Tab PO PRN (11:22)
--- NOTE | 2018-08-23 16:40 | PCM.DCSUM1 ---
Discharge Summary - Hospital Course Brief History: 77 year old male with AVN of left femoral head admitted for NATHALIA. History of PVD with femoral stents and treatment with Plavix and Aspirin. Diagnosis: Stroke: No - Discharge Data Discharge Date: 08/17/18 Discharge Disposition: Home, Self-Care 01 Condition: Good - Discharge Diagnosis/Problem(s) (1) Status post total hip replacement, left SNOMED Code(s): 920982902771, 511218473337 ICD Code: Z96.642 - PRESENCE OF LEFT ARTIFICIAL HIP JOINT Status: Acute (2) Avascular necrosis of bone of left hip SNOMED Code(s): 960583393 ICD Code: M87.052 - IDIOPATHIC ASEPTIC NECROSIS OF LEFT FEMUR Status: Acute (3) Postoperative anemia due to acute blood loss SNOMED Code(s): 16021871372260654 ICD Code: D62 - ACUTE POSTHEMORRHAGIC ANEMIA Status: Acute Problem Details: Intra-op and post-op bleeding - Patient Summary/Data Operative Procedure(s) Performed: Left NATHALIA Consults: Consultations 08/14/18 14:07 PT Evaluation and Treatment [CONS] Routine Please Evaluate and Treat. PT Reason for Consult: Ambulation Pending Discharge: Yes Discharge Disposition: Home w Home Health Special Instructions: posterior hip precautions, WBAT This query below is only for informational purposes and is not editable. 08/15/18 08:11 OT Evaluation and Treatment [CONS] Routine Please Evaluate and Treat. OT Reason for Consult: ADL's This query below is only for informational purposes and is not editable. Admission Diagnosis/Problem: Avascular necrosis of femoral head Hospital Course: Tolerated surgery without complication. Had some difficulty with pain control post-op and some night time confusion. Pain was eventually controlled and confusion did not return. Also had urinary retention requiring placement of Eid catheter and straight catheterization. After obtaining adequate pain control, progressing with activity and use of Flomax he was able to void. Progressed well with PT/OT. Had post-op anemia secondary to surgical blood loss and continuation on anticoagulation. Was able to achieve independence with ambulation and arrangements were made for discharge to home. - Patient Instructions Diet: Usual Diet as Tolerated Activity: Apply Ice, As Tolerated, Full Weight Bearing Driving: Do Not Drive Showering/Bathing: May Shower Wound/Incision Care: Change Dressing Daily Notify Provider of: Fever, Increased Pain, Swelling and Redness, Drainage, Nausea and/or Vomiting - Discharge Plan *PRESCRIPTION DRUG MONITORING PROGRAM REVIEWED*: No *COPY OF PRESCRIPTION DRUG MONITORING REPORT IN PATIENT ARNIE: No Home Medications: Home Meds Metoprolol Succinate [Toprol XL 100mg] 100 mg PO QAM 11/19/12 [History] Potassium Chloride [Klor-Con M20] 20 meq PO QAM 11/19/12 [History] hydrALAZINE [Apresoline] 75 mg PO BID 12/18/12 [History] Pravastatin Sodium [Pravachol] 20 mg PO DAILY 10/10/15 [History] Clopidogrel Bisulfate [Clopidogrel] 1 tab PO DAILY 02/11/17 [History] Aspirin 81 mg PO DAILY 08/08/18 [History] Ferrous Sulfate 324 mg PO DAILY 08/10/18 [History] amLODIPine [Norvasc] 5 mg PO DAILY 08/10/18 [History] Temazepam [Restoril] 15 mg PO BEDTIME PRN #14 cap 08/22/18 [Rx] Oxygen Therapy Mode: Room Air Patient Handouts: Total Hip Replacement, Posterior, Care After Referrals: Easton Rodriguez MD [Physician] - 08/22/18 2:15 pm ([facility] for your appointment at the ER desk and arrrive 15 minutes irwin.) - Discharge Summary/Plan Comment DC Time >30 min.: Yes - General Info Functional Status: Reports: Pain Controlled, Tolerating Diet, Ambulating, Urinating - Review of Systems General: Reports: No Symptoms HEENT: Reports: No Symptoms Pulmonary: Reports: No Symptoms Cardiovascular: Reports: No Symptoms Gastrointestinal: Reports: No Symptoms Genitourinary: Reports: No Symptoms Musculoskeletal: Reports: Leg Pain Skin: Reports: No Symptoms Neurological: Reports: No Symptoms Psychiatric: Reports: No Symptoms - Patient Data Vitals - Most Recent: Last Vital Signs Temp 36.2 C 08/17/18 08:20 Pulse 86 08/17/18 09:17 Resp 16 08/17/18 08:20 BP 152/73 H 08/17/18 09:18 Pulse Ox 99 08/17/18 08:20 Weight - Most Recent: 89.811 kg Med Orders - Current: Current Medications Discontinued Medications Acetaminophen (Tylenol) 650 mg PO Q4H PRN PRN Reason: Pain/Fever Last Admin: 08/17/18 11:22 Dose: 650 mg Hydrocodone Bitart/Acetaminophen ([place] 325-5 Mg) 1 tab PO Q3H PRN PRN Reason: Pain (mild 1-3) Last Admin: 08/17/18 09:15 Dose: 1 tab Amlodipine Besylate (Norvasc) 5 mg PO DAILY [facility] Last Admin: 08/17/18 09:18 Dose: 5 mg Aspirin (Aspirin) 81 mg PO DAILY [facility] Last Admin: 08/17/18 09:18 Dose: 81 mg Bandage/Support Products ( Nasal Lithographic Etcher) 1 applic NASBOTH BID [facility] Last Admin: 08/14/18 09:10 Dose: 1 applic Bandage/Support Products ( Nasal Lithographic Etcher) 1 applic NASBOTH BID [facility] Stop: 08/21/18 21:01 Last Admin: 08/17/18 09:16 Dose: 1 applic Benzocaine/Menthol (Cepacol Sore Throat) 1 lozenge MUCMEM Q1H PRN PRN Reason: Sore Throat Last Admin: 08/15/18 05:04 Dose: 1 richy Bupivacaine HCl (Marcaine 0.5%) Confirm Administered Dose 50 ml .ROUTE .STK-MED ONE Stop: 08/14/18 13:52 Calcium Carbonate/Glycine (Tums) 500 mg PO Q2H PRN PRN Reason: Indigestion Last Admin: 08/14/18 19:01 Dose: 500 mg Cefazolin Sodium (Ancef) Confirm Administered Dose 1 gm .ROUTE .STK-MED ONE Stop: 08/14/18 17:42 Last Admin: 08/14/18 17:47 Dose: 1 gm Clopidogrel Bisulfate (Plavix) 75 mg PO DAILY [facility] Last Admin: 08/17/18 09:17 Dose: 75 mg Dexamethasone (Dexamethasone) Confirm Administered Dose 4 mg .ROUTE .STK-MED ONE Stop: 08/14/18 12:14 Docusate Sodium (Colace) 100 mg PO BID PRN PRN Reason: Constipation Last Admin: 08/16/18 11:34 Dose: 100 mg Fentanyl (Sublimaze) Confirm Administered Dose 250 mcg .ROUTE .STK-MED ONE Stop: 08/14/18 12:14 Fentanyl (Sublimaze) Confirm Administered Dose 250 mcg .ROUTE .STK-MED ONE Stop: 08/14/18 13:11 Ferrous Sulfate (Ferrous Sulfate) 325 mg PO DAILY@0800 [facility] Last Admin: 08/17/18 09:18 Dose: 325 mg Glycopyrrolate (Robinul) Confirm Administered Dose 1 mg .ROUTE .STK-MED ONE Stop: 08/14/18 12:14 Hydralazine HCl (Apresoline) 75 mg PO BID [facility] Last Admin: 08/17/18 09:16 Dose: 75 mg Cefazolin Sodium/Dextrose 2 gm (/ Premix) 50 mls @ 100 mls/hr IV ONETIME ONE Stop: 08/14/18 10:29 Last Admin: 08/14/18 12:35 Dose: 100 mls/hr Lactated Ringer's (Ringers, Lactated) 1,000 mls @ 75 mls/hr IV ASDIRECTED [facility] Last Admin: 08/14/18 09:36 Dose: 75 mls/hr Tranexamic Acid 900 mg/ Sodium (Chloride) 59 mls @ 236 mls/hr IV Q3H [facility] Stop: 08/14/18 13:10 Last Admin: 08/14/18 13:00 Dose: 236 mls/hr Lactated Ringer's (Ringers, Lactated) Confirm Administered Dose 1,000 mls @ as directed .ROUTE .STK-MED ONE Stop: 08/14/18 13:46 Cefazolin Sodium/Dextrose 1 gm (/ Premix) 50 mls @ 200 mls/hr IV Q8H [facility] Stop: 08/15/18 10:14 Last Admin: 08/15/18 10:26 Dose: 200 mls/hr Sodium Chloride (Normal Saline) 1,000 mls @ 125 mls/hr IV ASDIRECTED [facility] Last Admin: 08/15/18 12:52 Dose: 125 mls/hr Sodium Chloride (Normal Saline) Confirm Administered Dose 50 mls @ as directed .ROUTE .STK-MED ONE Stop: 08/14/18 17:42 Last Admin: 08/14/18 17:49 Dose: 100 mls/hr Lidocaine HCl (Xylocaine 2% Jelly) 10 ml MUCMEM ONETIME ONE Stop: 08/15/18 00:44 Last Admin: 08/15/18 00:54 Dose: 10 ml Lidocaine HCl (Xylocaine 2% Jelly) 10 ml MUCMEM ONETIME ONE Stop: 08/15/18 21:49 Last Admin: 08/15/18 22:05 Dose: 10 ml Magnesium Hydroxide (Milk Of Magnesia) 30 ml PO Q8H PRN PRN Reason: Constipation Melatonin (Melatonin) 9 mg PO BEDTIME PRN PRN Reason: Sleep Last Admin: 08/16/18 20:28 Dose: 9 mg Metoprolol Succinate (Toprol Xl) 100 mg PO QAM [facility] Last Admin: 08/17/18 09:17 Dose: 100 mg Morphine Sulfate (Morphine) 2 mg IVPUSH Q1H PRN PRN Reason: Pain (severe 7-10) Last Admin: 08/15/18 22:02 Dose: 2 mg Neostigmine Methylsulfate (Neostigmine) Confirm Administered Dose 5 mg .ROUTE .STK-MED ONE Stop: 08/14/18 12:14 Ondansetron HCl (Zofran) Confirm Administered Dose 4 mg .ROUTE .STK-MED ONE Stop: 08/14/18 12:14 Oxycodone/Acetaminophen (Percocet 325-5 Mg) 0 tab PO Q4H PRN PRN Reason: Pain (severe 7-10) Last Admin: 08/16/18 20:26 Dose: 2 tab Potassium Chloride (Klor-Con M20) 20 meq PO [facility] Last Admin: 08/17/18 09:17 Dose: 20 meq Povidone Iodine (Betadine 10% Soln) Confirm Administered Dose 1 ml .ROUTE .STK- MED ONE Stop: 08/14/18 07:03 Last Admin: 08/14/18 13:20 Dose: 1 ml Pravastatin Sodium (Pravachol) 20 mg PO DAILY [facility] Last Admin: 08/17/18 09:17 Dose: 20 mg Propofol (Diprivan 20 Ml) Confirm Administered Dose 200 mg .ROUTE .STK-MED ONE Stop: 08/14/18 12:14 Rocuronium [place] (Zemuron) Confirm Administered Dose 50 mg .ROUTE .STK-MED ONE Stop: 08/14/18 12:14 Succinylcholine Chloride (Quelicin) Confirm Administered Dose 200 mg .ROUTE .STK -MED ONE Stop: 08/14/18 12:14 Tamsulosin HCl (Flomax) 0.4 mg PO ONETIME ONE Stop: 08/15/18 20:13 Last Admin: 08/15/18 20:20 Dose: 0.4 mg Tamsulosin HCl (Flomax) 0.4 mg PO BEDTIME [facility] Last Admin: 08/16/18 20:28 Dose: 0.4 mg - Exam General: Reports: Alert, Oriented HEENT: Reports: Pupils Equal, Pupils Reactive, EOMI, Mucous Membr. Moist/Lithium Neck: Reports: Supple Lungs: Reports: Clear to Auscultation, Normal Respiratory Effort Cardiovascular: Reports: Regular Rate, Regular Rhythm GI/Abdominal Exam: Normal Bowel Sounds, Soft, Non-Tender, No Organomegaly, No Distention, No Abnormal Bruit, No Mass, Pelvis Stable (Male) Exam: Deferred Rectal (Males) Exam: Deferred Back Exam: Reports: Normal Inspection, Full Range of Motion Extremities: Limited Range of Motion Skin: Reports: Warm, Dry, Intact Wound/Incisions: Reports: Healing Well Neurological: Reports: No New Focal Deficit Psy/Mental Status: Reports: Alert, Normal Affect, Normal Mood
--- NOTE | 2018-08-23 20:37 | OR ---
DATE OF PROCEDURE: 08/14/2018 PREOPERATIVE DIAGNOSIS: Avascular necrosis, left hip. POSTOPERATIVE DIAGNOSIS: Avascular necrosis, left hip. PROCEDURE: Left total hip arthroplasty using Tosin trabecular metal cup and M/ L taper stem. ANESTHESIA: General. INDICATIONS: Mr. Jackson is a 77-year-old male with a history of rapidly worsening pain in his left hip over the past 2 weeks. He initially sustained a fall resulting in a nondisplaced acetabular fracture on the left. He was recovering from this and progressing well when he began developing increasing pain. Over the course of the last couple of weeks, he has been unable to weightbear. Further evaluation reveals avascular necrosis of both right and left femoral heads with the left significantly worse than the right. He now presents for left total hip arthroplasty. His medical history is complicated by anticoagulation with Plavix and aspirin due to peripheral vascular disease and femoral stents. It has been recommended that neither of these be discontinued. He is aware of increased risk of bleeding and need for transfusion. PROCEDURE IN DETAIL: After adequate anesthesia was obtained, patient placed in the lateral decubitus position and secured with the hip positioner. The left hip was then prepped and draped in sterile fashion. A longitudinal incision was made over the greater trochanter and carried down through the subcutaneous tissues. Hemostasis was obtained with electrocautery. Meticulous hemostasis was obtained in the subcutaneous tissues. The tensor fascia was then split in line with its fibers and again hemostasis was obtained. A Charnley retractor was then placed. The leg was slightly internally rotated and the short external rotators were taken off the greater trochanter with electrocautery. This was done incrementally controlling any bleeding as we went. Piriformis was released and the capsule was then released in a T-fashion. A moderate sized effusion was present. Hip was then internally rotated and the hip dislocated. Retractor was placed about the femoral neck and an oscillating saw was then used to resect the femoral neck. Femoral head was inspected after its removal and this revealed a flap of articular cartilage which was delaminating on the superior surface consistent with the avascular necrosis. Care was taken not to rotate or displace the leg and femur significantly due to the femoral stent. Retractors were then placed about the acetabulum. Acetabular labrum was resected. Soft tissues were removed from the central acetabulum and the acetabulum was then sequentially reamed. This was taken down to subchondral bone. This was then irrigated and a trabecular metal cup was then press-fit into place. Excellent purchase was obtained with this. This was confirmed to be down to the subchondral bone and polyethylene liner was then snapped into position. Retractors then removed from around the acetabulum. Attention was then returned to the proximal femur. A box osteotome was used to remove the lateral femoral neck cortex. A hand awl was placed down the canal. Canal was lateralized using a proximal reamer. The proximal femur was then sequentially broached. The final broach was left in position and the trial neck was placed and this appeared to align well with the greater trochanter for limb length. The trial was removed. The final M/L taper stem was then press-fit into position. A trial reduction was then done with the 36 mm head. This was done recreating limb length. Good tension was present and the hip could be flexed to 90 degrees, adduct to 20 degrees and internally rotated with good stability. Trial was removed. Hip was irrigated and the final femoral head was tapped onto the taper. This was reduced and stability once again checked as well as the limb length noted. Any excessive bleeding was controlled with electrocautery. The capsule was then closed with #1 Ethibond. Piriformis was reattached with #1 Ethibond. Hip was irrigated prior to closure of the capsule including irrigation with dilute Betadine. After closure of the capsule and repair of piriformis, the tensor fascia and IT band were then repaired with #1 Ethibond. Skin was closed with 2-0 Vicryl and a running 3 -0 Monocryl subcuticular. Steri-Strips were applied. Light dressing was then placed. The patient tolerated the procedure well. There were no complications. Taken from the operating room in stable condition. Easton Rodriguez MD /[id number]
== END 2018-08-17 11:15 | disposition home or self-care (01) | DRG 470 ==
LOC: JP.SDS 08:21 → EDSTATUS 09:30 → JP.SDSSCHI 14:07 → JP.2SS 14:08 → JP.MS 18:28
PROVIDERS: ADMIT Specialist; ATTEND Specialist
PROC: 0SRB02A Replacement of Left Hip Joint with Metal on Polyethylene Synthetic Substitute, Uncemented, Open Approach (ICD-10-PCS; principal; 2018-08-14)
DX: M87.052 Idiopathic aseptic necrosis of left femur (principal); D62 Acute posthemorrhagic anemia; R33.8 Other retention of urine; I12.9 Hypertensive chronic kidney disease with stage 1 through stage 4 chronic kidney disease, or unspecified chronic kidney disease; N18.3 Chronic kidney disease, stage 3 (moderate); I25.10 Atherosclerotic heart disease of native coronary artery without angina pectoris; I73.9 Peripheral vascular disease, unspecified; E78.5 Hyperlipidemia, unspecified; H91.90 Unspecified hearing loss, unspecified ear; N40.0 Benign prostatic hyperplasia without lower urinary tract symptoms; Z86.010 Personal history of colon polyps; Z87.891 Personal history of nicotine dependence; Z95.5 Presence of coronary angioplasty implant and graft; Z85.828 Personal history of other malignant neoplasm of skin; Z79.82 Long term (current) use of aspirin
CPT/HCPCS: 36415; 51701; 51702; 72170; 72170-26; 80048; 85027; 88304; 88311; 97110-GP; 97116-GP; 97162-GP; 97165-GO; 97530-GP; A9270-GY; C1776; J0330; J0690; J1100; J2270; J2405; J2704; J2710; J3010; J3490; J7030; J7050; J7120

== ENCOUNTER 2018-09-12 09:56 | Emergency (ER) | payer MEDICARE, BC ==
--- NOTE | 2018-09-12 10:30 | EDM.PDOC ---
ED HPI GENERAL MEDICAL PROBLEM - General Chief Complaint: Respiratory Problem Stated Complaint: SOB Time Seen by Provider: 09/12/18 10:15 Source of Information: Reports: Patient, Old Records, RN History Limitations: Reports: Other (incomplete medical records) - History of Present Illness INITIAL COMMENTS - FREE TEXT/NARRATIVE: 77 yo male presents with a couple days of GREY. He has no orthopnea, fever, cough or chest pain. He has a hx of anemia. Has had ECHO's, thinks they were normal. No recent melena. Is on iron for anemia. Had a hip replaced one month ago. Has no hx of lung dz. Onset: Sudden Onset Date: 09/10/18 Duration: Day(s): (2), Intermittent (with exertion) Location: Reports: Chest Quality: Reports: Other (no pain) Severity: Moderate Improves with: Reports: Rest Worsens with: Reports: Movement Context: Reports: Other (see HPI) Associated Symptoms: Reports: No Other Symptoms Treatments PHYSICIAN INDUSTRIAL: Reports: Other (see below) (none) Denies Pain Score (Numeric/FACES): 0 - Related Data Allergies Allergy/AdvReac Type Severity Reaction Status Date / Time No Known Allergies Allergy Verified 09/12/18 10:38 Home Meds: Home Meds Metoprolol Succinate [Toprol XL 100mg] 100 mg PO QAM 11/19/12 [History] Potassium Chloride [Klor-Con M20] 20 meq PO QAM 11/19/12 [History] hydrALAZINE [Apresoline] 75 mg PO BID 12/18/12 [History] Pravastatin Sodium [Pravachol] 20 mg PO DAILY 10/10/15 [History] Clopidogrel Bisulfate [Clopidogrel] 1 tab PO DAILY 02/11/17 [History] Aspirin 81 mg PO DAILY 08/08/18 [History] Ferrous Sulfate 324 mg PO DAILY 08/10/18 [History] amLODIPine [Norvasc] 5 mg PO DAILY 08/10/18 [History] Past Medical History HEENT History: Reports: Hard of Hearing, Impaired Vision, Other (See Below) Other HEENT History: wears glasses Cardiovascular History: Reports: High Cholesterol, Hypertension Respiratory History: Reports: None Gastrointestinal History: Reports: Colon Polyp Genitourinary History: Reports: None Musculoskeletal History: Reports: None Other Musculoskeletal History: L hip pain, left hip fracture Neurological History: Reports: None Psychiatric History: Reports: None Endocrine/Metabolic History: Reports: None Hematologic History: Reports: Iron Deficiency Immunologic History: Reports: None Oncologic (Cancer) History: Reports: Other (See Below) Other Oncologic History: skin CA Dermatologic History: Reports: Other (See Below) 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 - Infectious Disease History Infectious Disease History: Reports: Chicken Pox - Past Surgical History Head Surgeries/Procedures: Reports: None Cardiovascular Surgical History: Reports: Coronary Artery Stent GI Surgical History: Reports: Appendectomy, Colonoscopy Neurological Surgical History: Reports: Other (See Below) Other Neurological Surgeries/Procedures: low back surgery Other Musculoskeletal Surgeries/Procedures:: left total hip 08-14-18 Dermatological Surgical History: Reports: Skin Biopsy Social & Family History - Caffeine Use Caffeine Use: Reports: None ED ROS GENERAL - Review of Systems Review Of Systems: See Below Constitutional: Reports: No Symptoms HEENT: Reports: No Symptoms Respiratory: Reports: Shortness of Breath (with exertion only). Denies: Wheezing, Pleuritic Chest Pain, Cough, Sputum, Hemoptysis Cardiovascular: Reports: No Symptoms Endocrine: Reports: No Symptoms GI/Abdominal: Reports: No Symptoms : Reports: No Symptoms Musculoskeletal: Reports: No Symptoms Skin: Reports: No Symptoms Neurological: Reports: No Symptoms Psychiatric: Reports: No Symptoms Hematologic/Lymphatic: Reports: Anemia (history of...) ED EXAM, GENERAL - Physical Exam Exam: See Below Exam Limited By: No Limitations General Appearance: Alert, WD/WN, No Apparent Distress Eye Exam: Bilateral Eye: PERRL, Other (pale conjunctivas) Ears: Normal External Exam, Normal Canal, Hearing Grossly Normal Ear Exam: Bilateral Ear: Auricle Normal, Canal Normal Nose: Normal Inspection, No Blood Throat/Mouth: Normal Inspection, Normal Lips, Normal Oropharynx, Normal Voice, No Airway Compromise, Other (slightly pale mucous membranes) Neck: Normal Inspection Respiratory/Chest: No Respiratory Distress, Lungs Clear, Normal Breath Sounds, No Accessory Muscle Use Cardiovascular: Regular Rate, Rhythm, No Edema Peripheral Pulses: 0: Carotid (R) GI/Abdominal: Normal Bowel Sounds, Soft, Non-Tender, No Distention Back Exam: Normal Inspection. No: CVA Tenderness (R), CVA Tenderness (L) Extremities: Normal Inspection, Normal Range of Motion, Non-Tender, No Pedal Edema Neurological: Alert, Oriented, CN II-XII Intact, Normal Cognition, No Motor/ Sensory Deficits Psychiatric: Normal Affect, Normal Mood Skin Exam: Warm, Dry, Intact, No Rash, Pallor Course - Vital Signs Last Recorded V/S: Last Vital Signs Temp 35.7 C 09/12/18 10:58 Pulse 69 09/12/18 10:58 Resp 20 09/12/18 10:58 BP 139/62 09/12/18 10:58 Pulse Ox 100 09/12/18 10:58 - Orders/Labs/Meds Orders: Active Orders 24 hr Category Date Time Status RED BLOOD CELLS LP [BBK] Stat Lab 09/12/18 10:47 Ordered TYPE AND SCREEN [BBK] Stat Lab 09/12/18 10:47 Ordered Labs: Laboratory Tests 09/12/18 09/12/18 09/12/18 Range/Units 10:30 10:30 10:30 WBC 4.1 L (4.5-11.0) K/uL RBC 2.20 L (4.30-5.90) M/uL Hgb 6.1 L* D (12.0-15.0) g/dL Hct 22.3 L (40.0-54.0) % MCV 101 H (80-98) fL MCH 28 (27-31) pg MCHC 27 L (32-36) % Plt Count 254 (150-400) K/uL Percent Retic (0.5-1.5) % D-Dimer, Quantitative 2570 H (0.0-400.0) ng/mL Sodium 142 (140-148) mmol/L Potassium 4.9 (3.6-5.2) mmol/L Chloride 107 (100-108) mmol/L Carbon Dioxide 20 L (21-32) mmol/L Anion Gap 19.9 H (5.0-14.0) mmol/L BUN 32 H (7-18) mg/dL Creatinine 1.7 H (0.8-1.3) mg/dL Est Cr Clr Drug Dosing 41.13 mL/min Estimated GFR (MDRD) 39 L (>60) Glucose 104 (74-106) mg/dL Calcium 9.2 (8.5-10.1) mg/dL 09/12/18 Range/Units 10:43 WBC (4.5-11.0) K/uL RBC (4.30-5.90) M/uL Hgb (12.0-15.0) g/dL Hct (40.0-54.0) % MCV (80-98) fL MCH (27-31) pg MCHC (32-36) % Plt Count (150-400) K/uL Percent Retic 5.5 H (0.5-1.5) % D-Dimer, Quantitative (0.0-400.0) ng/mL Sodium (140-148) mmol/L Potassium (3.6-5.2) mmol/L Chloride (100-108) mmol/L Carbon Dioxide (21-32) mmol/L Anion Gap (5.0-14.0) mmol/L BUN (7-18) mg/dL Creatinine (0.8-1.3) mg/dL Est Cr Clr Drug Dosing mL/min Estimated GFR (MDRD) (>60) Glucose (74-106) mg/dL Calcium (8.5-10.1) mg/dL - Re-Assessments/Exams Free Text/Narrative Re-Assessment/Exam: 09/12/18 10:35 ECHO from 12/06 showed EF 55-60%, mild aortic stenosis, mild concentric hypertrophy, mildly enlarged aortic root. Free Text/Narrative Re-Assessment/Exam: 09/12/18 11:00 d-dimer elevation attributed to his hip surgery 4 weeks ago. No tachycardia, chest pains, or calf swelling. Departure - Departure Time of Disposition: 11:05 Disposition: Home, Self-Care 01 Condition: Fair Clinical Impression: Anemia Qualifiers: Anemia type: unspecified type Qualified Code(s): D64.9 - Anemia, unspecified - Discharge Information Referrals: Cody Frances MD [Primary Care Provider] - Forms: ED Department Discharge Additional Instructions: Drink ample amts of fluids. Return tomorrow morning for your transfusion. F/U with your provider to discuss further work up if needed, of your anemia. - My Orders Last 24 Hours: My Active Orders 09/12/18 10:47 RED BLOOD CELLS LP [BBK] Stat TYPE AND SCREEN [BBK] Stat - Assessment/Plan Last 24 Hours: My Active Orders 09/12/18 10:47 RED BLOOD CELLS LP [BBK] Stat TYPE AND SCREEN [BBK] Stat
[2018-09-12 10:39] VITALS: BP 139/62; PULSE 69
--- NOTE | 2018-09-12 17:06 | PN ---
DATE OF SERVICE: 09/12/2018 REASON FOR VISIT: Followup left hip. HISTORY: Adolph is a 77-year-old gentleman with history of left total hip arthroplasty on 08/14/2018 for avascular necrosis. He reports that from the hip standpoint, he is doing extremely well. He reports [id number] pain. He has been using a cane primarily just for balance and because he has been getting a bit short of breath with walking. Reports that he is able to do his exercises prescribed by the home physical therapist without too much difficulty. Reports that walking more than about 30 feet or so gets him short of breath. He has not had any chest pressure or pain. No diaphoresis. He does have a history of coronary artery disease. He has had no significant swelling in the lower extremities. Reviewed his medications, allergies. REVIEW OF SYSTEMS: With shortness of breath as noted. PHYSICAL EXAMINATION: EXTREMITIES: Examination reveals no peripheral edema. His incision is healing without complication. He is walking with no significant limp. Range of motion of the hip is actually quite good. IMPRESSION: Status post left total hip arthroplasty with the hip doing well at this point. 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 He is short of breath, and with his history of coronary artery disease, it was recommended that he follow up with his primary care provider for evaluation. Note that on the way up to his car being escorted by one of the staff here, he was noted to have shortness of breath and become a little diaphoretic. He was then taken to the emergency room for evaluation and was found to be anemic. He is on anticoagulation therapy for his peripheral artery disease. He is scheduled for transfusion tomorrow. Easton Rodriguez MD /[id number]
== END 2018-09-12 11:50 | disposition home or self-care (01) ==
LOC: JP.ED 09:56
DX: D64.9 Anemia, unspecified (principal); I10 Essential (primary) hypertension; Z79.899 Other long term (current) drug therapy; Z95.5 Presence of coronary angioplasty implant and graft; Z90.49 Acquired absence of other specified parts of digestive tract; Z79.82 Long term (current) use of aspirin
CPT/HCPCS: 36415; 80048; 82272; 85027; 85045; 85379; 99284

== ENCOUNTER 2020-05-08 14:27 | Emergency (ER) | payer MEDICARE, BC ==
[2020-05-08 14:40] VITALS: PULSE 90
--- NOTE | 2020-05-08 15:06 | EDM.PDOC ---
ED HPI GENERAL MEDICAL PROBLEM - General Chief Complaint: General Stated Complaint: DIZZINESS,SHORT OF BREATH Time Seen by Provider: 05/08/20 15:06 Source of Information: Reports: Patient, Family History Limitations: Reports: No Limitations - History of Present Illness INITIAL COMMENTS - FREE TEXT/NARRATIVE: 79-year-old male with a history of anemia for unknown reasons, presents concerned that he may be anemic again. For the last 1 to 2 months he has been weaker, dizzy with activity, and less appetite. No pain, no chest pain, no significant shortness of breath. Denies black stools. He had one episode of vomiting yesterday but it was isolated. Today he felt like he could not walk without the assistance of a walker so decided to come in. He is on a blood thinner but has not had nosebleeds or obvious source of blood loss. Last time he developed anemia he needed 2 units of RBCs and a thorough work-up found nothing in his GI tract. Onset: Gradual Duration: Chronic (Symptoms have been ongoing for almost 2 months, slowly worsening) Location: Reports: Generalized Worsens with: Reports: Other (Activity or movement causes increased dizziness) Associated Symptoms: Reports: Loss of Appetite, Malaise, Weakness. Denies: Chest Pain, Cough, Fever/Chills, Headaches, Shortness of Breath - Related Data Allergies Allergy/AdvReac Type Severity Reaction Status Date / Time No Known Allergies Allergy Verified 05/08/20 14:40 Home Meds: Home Meds Metoprolol Succinate [Toprol XL 100mg] 100 mg PO QAM 11/19/12 [History] Potassium Chloride [Klor-Con M20] 20 meq PO QAM 11/19/12 [History] hydrALAZINE [Apresoline] 75 mg PO BID 12/18/12 [History] Pravastatin Sodium [Pravachol] 20 mg PO DAILY 10/10/15 [History] Clopidogrel Bisulfate [Clopidogrel] 75 mg PO DAILY 02/11/17 [History] Aspirin 81 mg PO DAILY 08/08/18 [History] Ferrous Sulfate 324 mg PO DAILY 08/10/18 [History] amLODIPine [Norvasc] 5 mg PO DAILY 08/10/18 [History] Past Medical History HEENT History: Reports: Hard of Hearing, Impaired Vision, Other (See Below) Other HEENT History: wears glasses Cardiovascular History: Reports: High Cholesterol, Hypertension Respiratory History: Reports: None Gastrointestinal History: Reports: Colon Polyp Genitourinary History: Reports: None Musculoskeletal History: Reports: None Other Musculoskeletal History: L hip pain, left hip fracture Neurological History: Reports: None Psychiatric History: Reports: None Endocrine/Metabolic History: Reports: None Hematologic History: Reports: Iron Deficiency Immunologic History: Reports: None Oncologic (Cancer) History: Reports: Other (See Below) Other Oncologic History: skin CA Dermatologic History: Reports: Other (See Below) 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 - Infectious Disease History Infectious Disease History: Reports: Chicken Pox - Past Surgical History Head Surgeries/Procedures: Reports: None HEENT Surgical History: Reports: Cataract Surgery, Tonsillectomy Cardiovascular Surgical History: Reports: Coronary Artery Stent GI Surgical History: Reports: Appendectomy, Colonoscopy Neurological Surgical History: Reports: Other (See Below) Other Neurological Surgeries/Procedures: low back surgery Musculoskeletal Surgical History: Reports: Hip Replacement Other Musculoskeletal Surgeries/Procedures:: left total hip 08-14-18 Dermatological Surgical History: Reports: Skin Biopsy Social & Family History - Family History Family Medical History: No Pertinent Family History - Tobacco Use Tobacco Use Status *Q: Never Tobacco User - Caffeine Use Caffeine Use: Reports: None - Alcohol Use Days Per Week of Alcohol Use: 7 Number of Drinks Per Day: 1 Total Drinks Per Week: 7 - Recreational Drug Use Recreational Drug Use: No ED ROS GENERAL - Review of Systems Review Of Systems: See Below Constitutional: Reports: Malaise, Decreased Appetite. Denies: Fever, Chills HEENT: Reports: No Symptoms Respiratory: Reports: No Symptoms Cardiovascular: Reports: Dyspnea on Exertion. Denies: Chest Pain, Palpitations Endocrine: Reports: Fatigue GI/Abdominal: Reports: Vomiting : Reports: No Symptoms Musculoskeletal: Reports: No Symptoms Skin: Reports: Bruising (Bruises easily on anticoagulants) Neurological: Reports: Dizziness. Denies: Confusion, Paresthesia Psychiatric: Reports: No Symptoms ED EXAM, GENERAL - Physical Exam Exam: See Below Exam Limited By: No Limitations General Appearance: Alert, No Apparent Distress, Other (All vitals are normal, O2 saturations are 100%) Eye Exam: Bilateral Eye: Other (Conjunctivae are somewhat pale, otherwise eyes are normal) Head: Atraumatic Neck: Normal Inspection, Supple, Non-Tender Respiratory/Chest: Lungs Clear Cardiovascular: Regular Rate, Rhythm GI/Abdominal: Soft, Non-Tender Extremities: Normal Inspection. No: Pedal Edema Neurological: Alert, Oriented, No Motor/Sensory Deficits Psychiatric: Normal Affect, Normal Mood Skin Exam: Warm, Dry, Other (Some superficial bruising are present on the back of both hands) Course - Vital Signs Last Recorded V/S: Last Vital Signs Temp 97.4 F 05/08/20 14:39 Pulse 90 05/08/20 14:39 Resp 16 05/08/20 16:31 BP 138/63 05/08/20 16:31 Pulse Ox 98 05/08/20 16:31 - Orders/Labs/Meds Orders: Active Orders 24 hr Category Date Time Status EKG 12 Lead [EK] Routine Ther 05/08/20 16:14 Ordered Labs: Laboratory Tests 05/08/20 05/08/20 Range/Units 15:27 15:27 WBC 4.1 L (4.5-11.0) K/uL RBC 2.13 L (4.30-5.90) M/uL Hgb 7.6 L (12.0-15.0) g/dL Hct 23.8 L (40.0-54.0) % MCV 112 H (80-98) fL MCH 36 H (27-31) pg MCHC 32 (32-36) % Plt Count 155 (150-400) K/uL Neut % (Auto) 92 H (36-66) % Lymph % (Auto) 5 L (24-44) % [place] % (Auto) 3 (2-6) % Eos % (Auto) 0 L (2-4) % Baso % (Auto) 0 (0-1) % Sodium 145 (140-148) mmol/L Potassium 4.5 (3.6-5.2) mmol/L Chloride 105 (100-108) mmol/L Carbon Dioxide 22 (21-32) mmol/L Anion Gap 18.2 H (5.0-14.0) mmol/L BUN 65 H D (7-18) mg/dL Creatinine 1.6 H (0.8-1.3) mg/dL Est Cr Clr Drug Dosing 42.31 mL/min Estimated GFR (MDRD) 42 L (>60) Glucose 127 H (74-106) mg/dL Calcium 9.5 (8.5-10.1) mg/dL Total Bilirubin 0.3 (0.2-1.0) mg/dL AST 38 H (15-37) U/L ALT 36 (12-78) U/L Alkaline Phosphatase 64 (46-116) U/L Troponin I 1.412 H* (0.000-0.056) ng/mL Total Protein 6.4 (6.4-8.2) g/dL Albumin 3.5 (3.4-5.0) g/dL Globulin 2.9 (2.3-3.5) g/dL Albumin/Globulin Ratio 1.2 (1.2-2.2) Meds: Medications Discontinued Medications Generic Name Dose Route Start Last Admin Trade Name Freq PRN Reason Stop Dose Admin Sodium Chloride 1,000 mls @ 200 mls/hr 05/08/20 16:15 05/08/20 16:42 Normal Saline IV 200 mls/hr ASDIRECTED JOSE Administration Pantoprazole Sodium 40 mg 05/08/20 16:09 05/08/20 16:43 Pantoprazole 40 Mg Vial IVPUSH 05/08/20 16:10 40 mg ONETIME ONE Administration - Re-Assessments/Exams Free Text/Narrative Re-Assessment/Exam: 05/08/20 15:30 CBC, CMP and troponin were obtained. 05/08/20 16:29 Hemoglobin returned 7.6, so a stool guaiac was obtained which was positive. CMP revealed an elevated BUN at 65 which would correlate with a GI bleed, his creatinine was 1.6 and GFR 42, very similar to levels over the past 6 years. His troponin returned 1.4, I do not think his kidney function would warrant a troponin that high. He has had no chest pain but he does have known coronary artery disease and has had stents in the past. His condition was discussed with Dr. Diamond to consider admission but before his GI bleed can be worked up his cardiac status needs to be checked so he will go to [place]. Dr. Dunbar accepted him for transfer. 05/08/20 16:32 Prior to transfer an IV was started, 200 cc of normal saline an hour along with 40 mg of IV Protonix. He is stable enough to be typed and crossed when he gets to [place]. Departure - Departure Time of Disposition: 17:43 Disposition: DC/Tfer to [place] [id number] Clinical Impression: Chronic blood loss anemia Myocardial infarction Qualifiers: Myocardial infarction type: non-ST elevation myocardial infarction Qualified Code(s): I21.4 - Non-ST elevation (NSTEMI) myocardial infarction GI bleed Qualifiers: GI bleed type/associated pathology: unspecified gastrointestinal hemorrhage type Qualified Code(s): K92.2 - Gastrointestinal hemorrhage, unspecified - Discharge Information Referrals: Cody Frances MD [Primary Care Provider] - Forms: ED Department Discharge Care Plan Goals: Patient is to be transferred to [facility], for work-up of GI bleed and blood loss anemia complicated by an elevated troponin. Sepsis Event Note (ED) - Evaluation Sepsis Screening Result: No Definite Risk - Focused Exam Vital Signs: Vital Signs Temp Pulse Resp BP Pulse Ox 05/08/20 16:31 16 138/63 98 05/08/20 15:30 12 119/55 L 100 05/08/20 14:39 97.4 F 90 12 121/62 100 - My Orders Last 24 Hours: My Active Orders 05/08/20 16:14 EKG 12 Lead [EK] Routine - Assessment/Plan Last 24 Hours: My Active Orders 05/08/20 16:14 EKG 12 Lead [EK] Routine
[2020-05-08] MEDS ORDERED: Pantoprazole 40 MG Vial IVPUSH ONE (16:09)
[2020-05-08] MEDS ORDERED: Sodium Chloride 0.9% 1,000 ML IV SCH (16:15)
[2020-05-08 16:32] VITALS: BP 138/63
== END 2020-05-08 17:45 | disposition other institution (70) ==
LOC: JP.ED 14:27
DX: I21.4 Non-ST elevation (NSTEMI) myocardial infarction (principal); K92.2 Gastrointestinal hemorrhage, unspecified; D50.0 Iron deficiency anemia secondary to blood loss (chronic); E78.00 Pure hypercholesterolemia, unspecified; I10 Essential (primary) hypertension; D50.9 Iron deficiency anemia, unspecified; Z79.82 Long term (current) use of aspirin; Z79.02 Long term (current) use of antithrombotics/antiplatelets; Z79.899 Other long term (current) drug therapy
CPT/HCPCS: 36415; 80053; 82272; 84484; 85025; 93005; 96374; 99285; 99285-25; C9113; J7030

== ENCOUNTER 2020-05-15 11:47 | Emergency (ER) | payer MEDICARE, BC ==
[2020-05-15] MEDS ORDERED: Sodium Chloride 0.9% 1,000 ML IV SCH (12:00)
--- NOTE | 2020-05-15 12:27 | EDM.PDOC ---
ED HPI GENERAL MEDICAL PROBLEM - General Stated Complaint: MEDICAL VIA [facility] Time Seen by Provider: 05/15/20 12:24 Source of Information: Reports: Patient History Limitations: Reports: No Limitations - History of Present Illness INITIAL COMMENTS - FREE TEXT/NARRATIVE: pt arrived after a near syncopal episode at home. He was transfered to [facility] on May 08 for Gi bleeding. He was found to have polyps and these were removed according to the pt. He has had dizzy spells since he got home. He has noted bright red bleeding however he did have some bright red blood in his shorts. Onset: Gradual Duration: Day(s): Location: Reports: Generalized Associated Symptoms: Reports: Shortness of Breath, Syncope, Weakness - Related Data Allergies Allergy/AdvReac Type Severity Reaction Status Date / Time No Known Allergies Allergy Verified 05/08/20 14:40 Home Meds: Home Meds Metoprolol Succinate [Toprol XL 100mg] 100 mg PO QAM 11/19/12 [History] Potassium Chloride [Klor-Con M20] 20 meq PO QAM 11/19/12 [History] hydrALAZINE [Apresoline] 75 mg PO BID 12/18/12 [History] Pravastatin Sodium [Pravachol] 20 mg PO DAILY 10/10/15 [History] Clopidogrel Bisulfate [Clopidogrel] 75 mg PO DAILY 02/11/17 [History] Aspirin 81 mg PO DAILY 08/08/18 [History] Ferrous Sulfate 324 mg PO DAILY 08/10/18 [History] amLODIPine [Norvasc] 5 mg PO DAILY 08/10/18 [History] Past Medical History HEENT History: Reports: Hard of Hearing, Impaired Vision, Other (See Below) Other HEENT History: wears glasses Cardiovascular History: Reports: High Cholesterol, Hypertension Respiratory History: Reports: None Gastrointestinal History: Reports: Colon Polyp Genitourinary History: Reports: None Musculoskeletal History: Reports: None Other Musculoskeletal History: L hip pain, left hip fracture Neurological History: Reports: None Psychiatric History: Reports: None Endocrine/Metabolic History: Reports: None Hematologic History: Reports: Iron Deficiency Immunologic History: Reports: None Oncologic (Cancer) History: Reports: Other (See Below) Other Oncologic History: skin CA Dermatologic History: Reports: Other (See Below) 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 - Infectious Disease History Infectious Disease History: Reports: Chicken Pox - Past Surgical History Head Surgeries/Procedures: Reports: None HEENT Surgical History: Reports: Cataract Surgery, Tonsillectomy Cardiovascular Surgical History: Reports: Coronary Artery Stent GI Surgical History: Reports: Appendectomy, Colonoscopy Neurological Surgical History: Reports: Other (See Below) Other Neurological Surgeries/Procedures: low back surgery Musculoskeletal Surgical History: Reports: Hip Replacement Other Musculoskeletal Surgeries/Procedures:: left total hip 08-14-18 Dermatological Surgical History: Reports: Skin Biopsy Social & Family History - Family History Family Medical History: No Pertinent Family History - Caffeine Use Caffeine Use: Reports: None ED ROS GENERAL - Review of Systems Review Of Systems: See Below Constitutional: Reports: Weakness HEENT: Reports: No Symptoms Respiratory: Reports: Shortness of Breath Cardiovascular: Reports: No Symptoms Endocrine: Reports: No Symptoms GI/Abdominal: Reports: Melena, Nausea, Other (near syncope) : Reports: No Symptoms Musculoskeletal: Reports: No Symptoms Skin: Reports: No Symptoms - Physical Exam Exam: See Below Text/Narrative:: pt arrived sweaty and very pale, He mccrary a history of recent polpy removal. from his rt colon. Exam Limited By: No Limitations General Appearance: Alert, Anxious, Mild Distress Ears: Normal TMs Nose: Normal Inspection Throat/Mouth: Normal Inspection Head Exam: Atraumatic Neck: Normal Inspection Respiratory/Chest: No Respiratory Distress Cardiovascular: Regular Rate, Rhythm, Tachycardia GI/Abdominal: Non-Tender (Male) Exam: No Hernia Rectal (Males) Exam: Other ( obvious dark blood present. ) Neuro Exam (Abbreviated): Alert, Oriented, Normal Cognition Back Exam: Normal Inspection Extremities: Normal Inspection Psychiatric: Anxious Course - Vital Signs Last Recorded V/S: Last Vital Signs Temp 36.5 C 05/15/20 14:04 Pulse 64 05/15/20 14:04 Resp 14 05/15/20 14:04 BP 133/53 L 05/15/20 14:04 Pulse Ox 96 05/15/20 13:40 - Orders/Labs/Meds Labs: Laboratory Tests 05/15/20 05/15/20 05/15/20 Range/Units 12:00 12:00 12:00 WBC 6.7 (4.5-11.0) K/uL RBC 1.81 L (4.30-5.90) M/uL Hgb 6.0 L* (12.0-15.0) g/dL Hct 20.1 L (40.0-54.0) % MCV 111 H (80-98) fL MCH 33 H (27-31) pg MCHC 30 L (32-36) % Plt Count 264 (150-400) K/uL Neut % (Auto) 84 H (36-66) % Lymph % (Auto) 6 L (24-44) % [place] % (Auto) 10 H (2-6) % Eos % (Auto) 0 L (2-4) % Baso % (Auto) 0 (0-1) % Sodium 141 (140-148) mmol/L Potassium 5.2 (3.6-5.2) mmol/L Chloride 108 (100-108) mmol/L Carbon Dioxide 20 L (21-32) mmol/L Anion Gap 18.2 H (5.0-14.0) mmol/L BUN 22 H D (7-18) mg/dL Creatinine 1.9 H (0.8-1.3) mg/dL Est Cr Clr Drug Dosing 35.63 mL/min Estimated GFR (MDRD) 34 L (>60) Glucose 137 H (74-106) mg/dL Calcium 9.1 (8.5-10.1) mg/dL Total Bilirubin 0.4 (0.2-1.0) mg/dL AST 17 (15-37) U/L ALT 22 (12-78) U/L Alkaline Phosphatase 59 (46-116) U/L Total Protein 5.1 L (6.4-8.2) g/dL Albumin 2.7 L (3.4-5.0) g/dL Globulin 2.4 (2.3-3.5) g/dL Albumin/Globulin Ratio 1.1 L (1.2-2.2) Urine Color (YELLOW) Urine Appearance (CLEAR) Urine pH (5.0-8.0) Ur Specific [place] (1.008-1.030) Urine Protein (NEGATIVE) mg/dL Urine Glucose (UA) (NEGATIVE) mg/dL Urine Ketones (NEGATIVE) mg/dL Urine Occult Blood (NEGATIVE) Urine Nitrite (NEGATIVE) Urine Bilirubin (NEGATIVE) Urine Urobilinogen (0.2-1.0) EU/dL Ur Leukocyte Esterase (NEGATIVE) Urine RBC (0-5) Urine WBC (0-5) Ur Epithelial Cells Amorphous Sediment Urine Bacteria Urine Mucus Blood Type B POSITIVE Gel Antibody Screen Negative Crossmatch See Detail 05/15/20 Range/Units 14:00 WBC (4.5-11.0) K/uL RBC (4.30-5.90) M/uL Hgb (12.0-15.0) g/dL Hct (40.0-54.0) % MCV (80-98) fL MCH (27-31) pg MCHC (32-36) % Plt Count (150-400) K/uL Neut % (Auto) (36-66) % Lymph % (Auto) (24-44) % [place] % (Auto) (2-6) % Eos % (Auto) (2-4) % Baso % (Auto) (0-1) % Sodium (140-148) mmol/L Potassium (3.6-5.2) mmol/L Chloride (100-108) mmol/L Carbon Dioxide (21-32) mmol/L Anion Gap (5.0-14.0) mmol/L BUN (7-18) mg/dL Creatinine (0.8-1.3) mg/dL Est Cr Clr Drug Dosing mL/min Estimated GFR (MDRD) (>60) Glucose (74-106) mg/dL Calcium (8.5-10.1) mg/dL Total Bilirubin (0.2-1.0) mg/dL AST (15-37) U/L ALT (12-78) U/L Alkaline Phosphatase (46-116) U/L Total Protein (6.4-8.2) g/dL Albumin (3.4-5.0) g/dL Globulin (2.3-3.5) g/dL Albumin/Globulin Ratio (1.2-2.2) Urine Color Rose A (YELLOW) Urine Appearance Clear (CLEAR) Urine pH 6.0 (5.0-8.0) Ur Specific [place] 1.020 (1.008-1.030) Urine Protein Negative (NEGATIVE) mg/dL Urine Glucose (UA) Negative (NEGATIVE) mg/dL Urine Ketones Negative (NEGATIVE) mg/dL Urine Occult Blood Negative (NEGATIVE) Urine Nitrite Negative (NEGATIVE) Urine Bilirubin Negative (NEGATIVE) Urine Urobilinogen 0.2 (0.2-1.0) EU/dL Ur Leukocyte Esterase Negative (NEGATIVE) Urine RBC Not seen (0-5) Urine WBC Not seen (0-5) Ur Epithelial Cells Rare Amorphous Sediment Rare Urine Bacteria Rare Urine Mucus Not seen Blood Type Gel Antibody Screen Crossmatch Meds: Medications Discontinued Medications Generic Name Dose Route Start Last Admin Trade Name Victor Hugo PRN Reason Stop Dose Admin Acetaminophen 650 mg 05/15/20 13:31 05/15/20 13:36 Acetaminophen 325 Mg Tab PO 05/15/20 13:32 650 mg NOW ONE Administration Sodium Chloride 1,000 mls @ 999 mls/hr 05/15/20 12:00 05/15/20 12:16 Normal Saline IV 999 mls/hr ASDIRECTED JOSE Administration Pantoprazole Sodium 40 mg 05/15/20 12:52 05/15/20 13:19 Pantoprazole 40 Mg Vial IVPUSH 05/15/20 12:53 40 mg ONETIME ONE Administration - Re-Assessments/Exams Free Text/Narrative Re-Assessment/Exam: 05/15/20 12:43 pt had bright red blood on rectal exam. He has a hg of 6. Will hang a unit of blood for transport. Departure - Departure Time of Disposition: 14:35 Disposition: DC/Tfer to Acute Hospital 02 Condition: Fair Clinical Impression: Lower GI bleeding, History of adenomatous polyp of colon - Discharge Information Referrals: PCP,None [Ordering Only Provider] - Care Plan Goals: transfer to [facility].
[2020-05-15] MEDS ORDERED: Pantoprazole 40 MG Vial IVPUSH ONE (12:52)
[2020-05-15] MEDS ORDERED: Acetaminophen 325 MG Tab PO ONE (13:31)
[2020-05-15 14:29] VITALS: BP 133/53; PULSE 64
== END 2020-05-15 14:40 ==
LOC: JP.ED 11:47
DX: K92.2 Gastrointestinal hemorrhage, unspecified (principal); E78.00 Pure hypercholesterolemia, unspecified; I10 Essential (primary) hypertension; Z79.82 Long term (current) use of aspirin; Z79.02 Long term (current) use of antithrombotics/antiplatelets; Z79.899 Other long term (current) drug therapy; Z86.010 Personal history of colon polyps
CPT/HCPCS: 36415; 36430; 80053; 81001; 85025; 86850; 86900; 86901; 86920; 86922; 96374; 99285; A9270; C9113; J7030; P9016

== ENCOUNTER 2020-12-15 10:33 | Inpatient (IN) | payer MEDICARE, BC ==
--- NOTE | 2020-12-15 11:22 | EDM.PDOC ---
ED HPI GENERAL MEDICAL PROBLEM - General Chief Complaint: Gastrointestinal Problem Stated Complaint: THROWING UP Time Seen by Provider: 12/15/20 11:05 Source of Information: Reports: Patient, Family History Limitations: Reports: No Limitations - History of Present Illness INITIAL COMMENTS - FREE TEXT/NARRATIVE: 80-year-old male with a history of GI bleed and blood loss anemia, has had brown stools with brown emesis over the past 4 days. He feels like he is getting weaker, his thinks he is turning more pale and he is having increased dyspnea with activity all symptoms that are very typical Onset: Gradual Duration: Day(s): (Symptoms for 4 days, dark stools and brown emesis.) Associated Symptoms: Reports: Malaise, Nausea/Vomiting, Shortness of Breath (Especially with activity), Weakness. Denies: Confusion, Chest Pain - Related Data Allergies Allergy/AdvReac Type Severity Reaction Status Date / Time No Known Allergies Allergy Verified 12/15/20 10:44 Home Meds: Home Meds Metoprolol Succinate [Toprol XL 100mg] 100 mg PO QAM 11/19/12 [History] Potassium Chloride [Klor-Con M20] 20 meq PO QAM 11/19/12 [History] hydrALAZINE [Apresoline] 75 mg PO BID 12/18/12 [History] Pravastatin Sodium [Pravachol] 20 mg PO DAILY 10/10/15 [History] Clopidogrel Bisulfate [Clopidogrel] 75 mg PO DAILY 02/11/17 [History] Ferrous Sulfate 324 mg PO DAILY 08/10/18 [History] amLODIPine [Norvasc] 5 mg PO DAILY 08/10/18 [History] Past Medical History HEENT History: Reports: Hard of Hearing, Impaired Vision, Other (See Below) Other HEENT History: wears glasses Cardiovascular History: Reports: High Cholesterol, Hypertension Respiratory History: Reports: None Gastrointestinal History: Reports: Colon Polyp, GI Bleed Genitourinary History: Reports: None Musculoskeletal History: Reports: None Other Musculoskeletal History: L hip pain, left hip fracture Neurological History: Reports: None Psychiatric History: Reports: None Endocrine/Metabolic History: Reports: None Hematologic History: Reports: Iron Deficiency Immunologic History: Reports: None Oncologic (Cancer) History: Reports: Other (See Below) Other Oncologic History: skin CA Dermatologic History: Reports: Other (See Below) 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 - Infectious Disease History Infectious Disease History: Reports: Chicken Pox - Past Surgical History Head Surgeries/Procedures: Reports: None HEENT Surgical History: Reports: Cataract Surgery, Tonsillectomy Cardiovascular Surgical History: Reports: Coronary Artery Stent GI Surgical History: Reports: Appendectomy, Colonoscopy Neurological Surgical History: Reports: Other (See Below) Other Neurological Surgeries/Procedures: low back surgery Musculoskeletal Surgical History: Reports: Hip Replacement Other Musculoskeletal Surgeries/Procedures:: left total hip 08-14-18 Dermatological Surgical History: Reports: Skin Biopsy Social & Family History - Family History Family Medical History: No Pertinent Family History - Tobacco Use Tobacco Use Status *Q: Never Tobacco User - Caffeine Use Caffeine Use: Reports: Coffee - Alcohol Use Days Per Week of Alcohol Use: 7 Number of Drinks Per Day: 1 Total Drinks Per Week: 7 - Recreational Drug Use Recreational Drug Use: No ED ROS GENERAL - Review of Systems Review Of Systems: See Below Constitutional: Reports: Malaise, Decreased Appetite. Denies: Fever, Chills HEENT: Reports: No Symptoms Respiratory: Reports: Shortness of Breath (With activity) Cardiovascular: Denies: Chest Pain, Palpitations GI/Abdominal: Reports: Hematemesis, Melena, Nausea, Vomiting. Denies: Abdominal Pain : Reports: No Symptoms Musculoskeletal: Reports: No Symptoms Skin: Reports: Pallor Neurological: Reports: Dizziness, Weakness Psychiatric: Reports: No Symptoms ED EXAM, GENERAL - Physical Exam Exam: See Below Exam Limited By: No Limitations General Appearance: Alert, No Apparent Distress Eye Exam: Bilateral Eye: Other (Pale conjunctiva, otherwise normal) Head: Atraumatic Neck: Supple, Non-Tender Respiratory/Chest: Lungs Clear Cardiovascular: Regular Rate, Rhythm. No: Tachycardia GI/Abdominal: Normal Bowel Sounds, Soft, Non-Tender Rectal (Males) Exam: Black Stool Extremities: Normal Inspection. No: Pedal Edema Neurological: Alert, Oriented Psychiatric: Normal Affect, Normal Mood Skin Exam: Warm, Dry, Pallor Course - Vital Signs Last Recorded V/S: Last Vital Signs Temp 97 F 12/15/20 16:15 Pulse 87 12/15/20 16:15 Resp 19 12/15/20 16:15 BP 136/50 L 12/15/20 16:15 Pulse Ox 100 12/15/20 16:15 - Orders/Labs/Meds Orders: Active Orders 24 hr Category Date Time Status Hemoccult [OCCULT BLOOD DIAGNOSTIC] [OP] Stat Lab 12/15/20 11:29 Received RED BLOOD CELLS LP [BBK] Stat Lab 12/15/20 12:25 Results TYPE AND SCREEN [BBK] Stat Lab 12/15/20 12:25 Results Pantoprazole [ProTONIX IV] 80 mg Med 12/15/20 14:30 Active Sodium Chloride 0.9% [Normal Saline] 100 ml IV Q10H Transfuse Red Blood Cells [COMM] Stat Oth 12/15/20 11:49 Ordered Medication Orders Acetaminophen (Acetaminophen 325 Mg Tab) 650 mg PO Q4H PRN PRN Reason: Pain (Mild 1-3)/fever Bisacodyl (Bisacodyl 5 Mg Tab) 10 mg PO ONETIME ONE Stop: 12/15/20 20:01 Hydralazine HCl (Hydralazine 25 Mg Tab) 75 mg PO BID JOSE Pantoprazole Sodium 80 mg/ (Sodium Chloride) 100 mls @ 10 mls/hr IV Q10H JOSE Last Admin: 12/15/20 14:14 Dose: 10 mls/hr Documented by: STUART Sodium Chloride (Normal Saline) 1,000 mls @ 125 mls/hr IV ASDIRECTED JOSE Metoprolol Succinate (Metoprolol Succinate 50 Mg Tab.Er) 100 mg PO QAM JOSE Ondansetron HCl (Ondansetron 4 Mg/2 Ml Sdv) 4 mg IV Q4H PRN PRN Reason: Nausea/Vomiting Polyethylene Glycol (Polyethylene Glycol 3350 Powder 238 Gm Bot) 238 gm PO ONETIME ONE Stop: 12/15/20 17:01 Pravastatin Sodium (Pravastatin 20 Mg Tab) 20 mg PO DAILY JOSE Sodium Chloride (Sodium Chloride 0.9% 10 Ml Syringe) 10 ml FLUSH ASDIRECTED PRN PRN Reason: Keep Vein Open Labs: Laboratory Tests 12/15/20 12/15/20 12/15/20 Range/Units 11:27 11:27 12:25 WBC 8.3 (4.5-11.0) K/uL RBC 1.59 L (4.30-5.90) M/uL Hgb 5.6 L* (12.0-15.0) g/dL Hct 17.8 L (40.0-54.0) % MCV 112 H (80-98) fL MCH 35 H (27-31) pg MCHC 32 (32-36) % Plt Count 237 (150-400) K/uL Add Manual Diff Yes Neutrophils % (Manual) 83 H (36-66) % Band Neutrophils % 4 L (5-11) % Lymphocytes % (Manual) 8 L (24-44) % Monocytes % (Manual) 5 (2-6) % Macrocytosis Moderate H Sodium 140 (140-148) mmol/L Potassium 4.2 (3.6-5.2) mmol/L Chloride 104 (100-108) mmol/L Carbon Dioxide 21 (21-32) mmol/L Anion Gap 15.3 H (5.0-14.0) mmol/L BUN 92 H* D (7-18) mg/dL Creatinine 2.2 H (0.8-1.3) mg/dL Est Cr Clr Drug Dosing 30.27 mL/min Estimated GFR (MDRD) 29 L (>60) Glucose 137 H (74-106) mg/dL Calcium 8.5 (8.5-10.1) mg/dL SARS-CoV-2 RNA (IVANIA) (NEGATIVE) Blood Type B POSITIVE Gel Antibody Screen Negative Crossmatch See Detail 12/15/20 Range/Units 12:29 WBC (4.5-11.0) K/uL RBC (4.30-5.90) M/uL Hgb (12.0-15.0) g/dL Hct (40.0-54.0) % MCV (80-98) fL MCH (27-31) pg MCHC (32-36) % Plt Count (150-400) K/uL Add Manual Diff Neutrophils % (Manual) (36-66) % Band Neutrophils % (5-11) % Lymphocytes % (Manual) (24-44) % Monocytes % (Manual) (2-6) % Macrocytosis Sodium (140-148) mmol/L Potassium (3.6-5.2) mmol/L Chloride (100-108) mmol/L Carbon Dioxide (21-32) mmol/L Anion Gap (5.0-14.0) mmol/L BUN (7-18) mg/dL Creatinine (0.8-1.3) mg/dL Est Cr Clr Drug Dosing mL/min Estimated GFR (MDRD) (>60) Glucose (74-106) mg/dL Calcium (8.5-10.1) mg/dL SARS-CoV-2 RNA (IVANIA) Negative (NEGATIVE) Blood Type Gel Antibody Screen Crossmatch Meds: Medications Generic Name Dose Route Start Last Admin Trade Name Victor Hugo PRN Reason Stop Dose Admin Acetaminophen 650 mg 12/15/20 14:19 Acetaminophen 325 Mg Tab PO Q4H PRN Pain (Mild 1-3)/fever Bisacodyl 10 mg 12/15/20 20:00 Bisacodyl 5 Mg Tab PO 12/15/20 20:01 ONETIME ONE Hydralazine HCl 75 mg 12/15/20 21:00 Hydralazine 25 Mg Tab PO BID JOSE Pantoprazole Sodium 80 mg/ 100 mls @ 10 mls/hr 12/15/20 14:30 12/15/20 14:14 Sodium Chloride IV 10 mls/hr Q10H JOSE Administration Sodium Chloride 1,000 mls @ 125 mls/hr 12/15/20 14:19 Normal Saline IV ASDIRECTED JOSE Metoprolol Succinate 100 mg 12/16/20 09:00 Metoprolol Succinate 50 Mg Tab.Er PO QAM JOSE Ondansetron HCl 4 mg 12/15/20 14:19 Ondansetron 4 Mg/2 Ml Sdv IV Q4H PRN Nausea/Vomiting Polyethylene Glycol 238 gm 12/15/20 17:00 Polyethylene Glycol 3350 Powder 238 Gm Bot PO 12/15/20 17:01 ONETIME ONE Pravastatin Sodium 20 mg 12/16/20 09:00 Pravastatin 20 Mg Tab PO DAILY JOSE Sodium Chloride 10 ml 12/15/20 14:19 Sodium Chloride 0.9% 10 Ml Syringe FLUSH ASDIRECTED PRN Keep Vein Open Discontinued Medications Generic Name Dose Route Start Last Admin Trade Name Victor Hugo PRN Reason Stop Dose Admin Acetaminophen 1,000 mg 12/15/20 13:55 12/15/20 14:16 Acetaminophen 500 Mg Tab PO 12/15/20 13:56 1,000 mg ONETIME ONE Administration Bisacodyl 10 mg 12/15/20 14:19 12/15/20 15:22 Bisacodyl 5 Mg Tab PO 12/15/20 14:20 10 mg ONETIME ONE Administration Pantoprazole Sodium 80 mg 12/15/20 11:45 12/15/20 11:58 Pantoprazole 40 Mg Vial IVPUSH 80 mg .BOLUS JOSE Administration - Re-Assessments/Exams Free Text/Narrative Re-Assessment/Exam: 12/15/20 11:51 CBC, BMP, INR were obtained. Hemoglobin returned 5.6 which is lower than his 6.0 level in April. An IV was started and the patient was given 80 mg of IV Protonix, 2 units of packed RBCs were typed and crossed for transfusion. 12/15/20 16:37 Rest of patient's electrolytes are reassuring other than in BUN being 92 which is typical for a GI bleed. Coronavirus is negative. Dr. Du Diamond of the hospitalist service kindly agreed to admit the patient for blood transfusion and management of further evaluation of a GI bleed. Departure - Departure Time of Disposition: 14:52 Disposition: Admitted As Inpatient 66 Clinical Impression: Anemia, blood loss GI bleed Qualifiers: GI bleed type/associated pathology: melena Qualified Code(s): K92.1 - Melena - Discharge Information Sepsis Event Note (ED) - Evaluation Sepsis Screening Result: No Definite Risk - Focused Exam Vital Signs: Vital Signs Temp Pulse Resp BP Pulse Ox 12/15/20 13:28 87 21 H 125/52 L 99 12/15/20 12:29 85 14 120/46 L 100 12/15/20 11:06 90 14 128/47 L 100 12/15/20 10:42 97.0 F 91 16 106/55 L 100 - My Orders Last 24 Hours: My Active Orders 12/15/20 11:29 Hemoccult [OCCULT BLOOD DIAGNOSTIC] [OP] Stat 12/15/20 11:49 Transfuse Red Blood Cells [COMM] Stat 12/15/20 12:25 RED BLOOD CELLS LP [BBK] Stat TYPE AND SCREEN [BBK] Stat - Assessment/Plan Last 24 Hours: My Active Orders 12/15/20 11:29 Hemoccult [OCCULT BLOOD DIAGNOSTIC] [OP] Stat 12/15/20 11:49 Transfuse Red Blood Cells [COMM] Stat 12/15/20 12:25 RED BLOOD CELLS LP [BBK] Stat TYPE AND SCREEN [BBK] Stat
[2020-12-15] MEDS ORDERED: Pantoprazole 40 MG Vial IVPUSH SCH (11:45)
[2020-12-15] MEDS ORDERED: Acetaminophen 500 MG Tab PO ONE (13:55)
--- NOTE | 2020-12-15 14:01 | PCM.HP.2 ---
H&P History of Present Illness - General Date of Service: 12/15/20 Admit Problem/Dx: Admission Diagnosis/Problem Admission Diagnosis/Problem Bleeding Source of Information: Patient, Family, Provider, RN Notes Reviewed History Limitations: Reports: No Limitations - History of Present Illness Initial Comments - Free Text/Narative: Mr. Jackson is an 80-year-old gentleman who was admitted through the emergency department with progressive weakness and lightheadedness, secondary to a GI bleed. He has a history of GI bleed earlier this year and was hospitalized in [place]. At that time colonoscopy was performed which apparently showed 2 polyps that were removed and felt to represent the source of bleeding. A week later he experienced similar symptoms and underwent another colonoscopy where a third polyp was found and removed. Since then he has been stable and felt well until this week when he developed nausea and vomiting as well as diarrhea. Emesis and stools have appeared to be brown in color. Over the last few days he has become progressively more weak and presented to the emergency department today for further evaluation. Laboratory studies show significant anemia with a hemoglobin of 5.6. - Related Data Allergies/Adverse Reactions: Allergies Allergy/AdvReac Type Severity Reaction Status Date / Time No Known Allergies Allergy Verified 12/15/20 10:44 Home Medications: Home Meds Metoprolol Succinate [Toprol XL 100mg] 100 mg PO QAM 11/19/12 [History] Potassium Chloride [Klor-Con M20] 20 meq PO QAM 11/19/12 [History] hydrALAZINE [Apresoline] 75 mg PO BID 12/18/12 [History] Pravastatin Sodium [Pravachol] 20 mg PO DAILY 10/10/15 [History] Clopidogrel Bisulfate [Clopidogrel] 75 mg PO DAILY 02/11/17 [History] Ferrous Sulfate 324 mg PO DAILY 08/10/18 [History] amLODIPine [Norvasc] 5 mg PO DAILY 08/10/18 [History] Past Medical History HEENT History: Reports: Hard of Hearing, Impaired Vision, Other (See Below) Other HEENT History: wears glasses Cardiovascular History: Reports: High Cholesterol, Hypertension Respiratory History: Reports: None Gastrointestinal History: Reports: Colon Polyp, GI Bleed Genitourinary History: Reports: None Musculoskeletal History: Reports: None Other Musculoskeletal History: L hip pain, left hip fracture Neurological History: Reports: None Psychiatric History: Reports: None Endocrine/Metabolic History: Reports: None Hematologic History: Reports: Iron Deficiency Immunologic History: Reports: None Oncologic (Cancer) History: Reports: Other (See Below) Other Oncologic History: skin CA Dermatologic History: Reports: Other (See Below) 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 - Infectious Disease History Infectious Disease History: Reports: Chicken Pox - Past Surgical History Head Surgeries/Procedures: Reports: None HEENT Surgical History: Reports: Cataract Surgery, Tonsillectomy Cardiovascular Surgical History: Reports: Coronary Artery Stent GI Surgical History: Reports: Appendectomy, Colonoscopy Neurological Surgical History: Reports: Other (See Below) Other Neurological Surgeries/Procedures: low back surgery Musculoskeletal Surgical History: Reports: Hip Replacement Other Musculoskeletal Surgeries/Procedures:: left total hip 08-14-18 Dermatological Surgical History: Reports: Skin Biopsy Social & Family History - Family History Family Medical History: No Pertinent Family History - Tobacco Use Tobacco Use Status *Q: Never Tobacco User - Caffeine Use Caffeine Use: Reports: Coffee - Alcohol Use Days Per Week of Alcohol Use: 7 Number of Drinks Per Day: 1 Total Drinks Per Week: 7 - Recreational Drug Use Recreational Drug Use: No H&P Review of Systems - Review of Systems: Review Of Systems: See Below General: Reports: Malaise, Weakness, Fatigue. Denies: Fever, Chills HEENT: Reports: No Symptoms Pulmonary: Reports: No Symptoms Cardiovascular: Reports: No Symptoms Gastrointestinal: Reports: Diarrhea, Nausea, Vomiting. Denies: Difficulty Swallowing, Distension, Hematemesis, Hematochezia, Melena Genitourinary: Reports: No Symptoms Musculoskeletal: Reports: No Symptoms Skin: Reports: No Symptoms Psychiatric: Reports: No Symptoms Neurological: Reports: No Symptoms Hematologic/Lymphatic: Reports: No Symptoms Immunologic: Reports: No Symptoms Exam - Exam Exam: See Below - Vital Signs Vital Signs: Last Vital Signs Temp 97.0 F 12/15/20 10:42 Pulse 87 12/15/20 13:28 Resp 21 H 12/15/20 13:28 BP 125/52 L 12/15/20 13:28 Pulse Ox 99 12/15/20 13:28 Weight: 200 lb - Exam Quality Assessment: DVT Prophylaxis General: Alert, Oriented, Cooperative, Moderate Distress HEENT: Conjunctiva Clear, Hearing Intact, Normal Nasal Septum, Posterior Pharynx Clear, Pupils Equal. No: Mucosa Moist & [place] Neck: Supple, Trachea Midline, +2 Carotid Pulse wo Bruit Lungs: Clear to Auscultation, Normal Respiratory Effort Cardiovascular: Regular Rate, Regular Rhythm, Normal S1, Normal S2, Systolic Murmur. No: Diastolic Murmur GI/Abdominal Exam: Soft, Non-Tender, No Organomegaly, No Distention Back Exam: Normal Inspection, Full Range of Motion Extremities: Non-Tender, No Pedal Edema Skin: Warm, Dry, Intact Neurological: Cranial Nerves Intact, Strength Equal Bilateral, Normal Speech, Normal Tone, Sensation Intact. No: Focal Deficit Neuro Extensive - Mental Status: Alert, Oriented x3, Normal Mood/Affect, Normal Cognition, Memory Intact - Patient Data Lab Results Last 24 hrs: Laboratory Results - last 24 hr 12/15/20 12/15/20 12/15/20 Range/Units 11:27 11:27 12:25 WBC 8.3 (4.5-11.0) K/uL RBC 1.59 L (4.30-5.90) M/uL Hgb 5.6 L* (12.0-15.0) g/dL Hct 17.8 L (40.0-54.0) % MCV 112 H (80-98) fL MCH 35 H (27-31) pg MCHC 32 (32-36) % Plt Count 237 (150-400) K/uL Add Manual Diff Yes Neutrophils % (Manual) 83 H (36-66) % Band Neutrophils % 4 L (5-11) % Lymphocytes % (Manual) 8 L (24-44) % Monocytes % (Manual) 5 (2-6) % Macrocytosis Moderate H Sodium 140 (140-148) mmol/L Potassium 4.2 (3.6-5.2) mmol/L Chloride 104 (100-108) mmol/L Carbon Dioxide 21 (21-32) mmol/L Anion Gap 15.3 H (5.0-14.0) mmol/L BUN 92 H* D (7-18) mg/dL Creatinine 2.2 H (0.8-1.3) mg/dL Est Cr Clr Drug Dosing 30.27 mL/min Estimated GFR (MDRD) 29 L (>60) Glucose 137 H (74-106) mg/dL Calcium 8.5 (8.5-10.1) mg/dL SARS-CoV-2 RNA (IVANIA) (NEGATIVE) Blood Type B POSITIVE Gel Antibody Screen Negative Crossmatch See Detail 12/15/20 Range/Units 12:29 WBC (4.5-11.0) K/uL RBC (4.30-5.90) M/uL Hgb (12.0-15.0) g/dL Hct (40.0-54.0) % MCV (80-98) fL MCH (27-31) pg MCHC (32-36) % Plt Count (150-400) K/uL Add Manual Diff Neutrophils % (Manual) (36-66) % Band Neutrophils % (5-11) % Lymphocytes % (Manual) (24-44) % Monocytes % (Manual) (2-6) % Macrocytosis Sodium (140-148) mmol/L Potassium (3.6-5.2) mmol/L Chloride (100-108) mmol/L Carbon Dioxide (21-32) mmol/L Anion Gap (5.0-14.0) mmol/L BUN (7-18) mg/dL Creatinine (0.8-1.3) mg/dL Est Cr Clr Drug Dosing mL/min Estimated GFR (MDRD) (>60) Glucose (74-106) mg/dL Calcium (8.5-10.1) mg/dL SARS-CoV-2 RNA (IVANIA) Negative (NEGATIVE) Blood Type Gel Antibody Screen Crossmatch Result Diagrams: 12/15/20 11:27 12/15/20 11:27 Sepsis Event Note - Evaluation Sepsis Screening Result: No Definite Risk - Focused Exam Vital Signs: Vital Signs Temp Pulse Resp BP Pulse Ox 12/15/20 13:28 87 21 H 125/52 L 99 12/15/20 12:29 85 14 120/46 L 100 12/15/20 11:06 90 14 128/47 L 100 12/15/20 10:42 97.0 F 91 16 106/55 L 100 *Q Meaningful Use (ADM) - VTE *Q VTE Pharmacological Contraindications *Q: Active Hemorrhage - VTE Risk Assess *Q Each Risk Factor Represents 1 Point: Obesity ( BMI > 25 kg/m2) Total Score 1 Point Risk Factors: 1 Each Risk Factor Represents 2 Points: None Total Score 2 Point Risk Factors: 0 Each Risk Factor Represents 3 Points: Age 75 Years or Greater Total Score 3 Point Risk Factors: 3 Each Risk Factor Represents 5 Points: None Total Score 5 Point Risk Factors: 0 Venous Thromboembolism Risk Factor Score *Q: 4 Problem List Initiated/Reviewed/Updated: Yes Orders Last 24hrs: Active Orders 24 hr Category Date Time Status Patient Status Manage Transfer [TRANSFER] Routine ADT 12/15/20 13:45 Active Hemoccult [OCCULT BLOOD DIAGNOSTIC] [OP] Stat Lab 12/15/20 11:29 Received RED BLOOD CELLS LP [BBK] Stat Lab 12/15/20 12:25 Results TYPE AND SCREEN [BBK] Stat Lab 12/15/20 12:25 Results Pantoprazole [ProTONIX IV] 80 mg Med 12/15/20 14:30 Active Sodium Chloride 0.9% [Normal Saline] 100 ml IV Q10H Transfuse Red Blood Cells [COMM] Stat Oth 12/15/20 11:49 Ordered Resuscitation Status Routine Resus Stat 12/15/20 13:53 Ordered Medication Orders Pantoprazole Sodium 80 mg/ (Sodium Chloride) 100 mls @ 10 mls/hr IV Q10H JOSE Assessment/Plan Comment:: ASSESSMENT AND PLAN ACUTE GI BLEED-history of 2 prior previous bleeds earlier this year, felt to be secondary to colon polyps. He is on long-term antiplatelet therapy with Plavix because of prior cardiac stents. Presents with a 4-day history of nausea vomiting and diarrhea, with brown appearing emesis and stool. Hemoglobin obtained in the emergency department markedly low at 5.6. -Clear liquid diet, n.p.o. after midnight -Hold Plavix -Protonix 80 mg IV, followed by continuous infusion 8 mg/h -Transfused 2 units of red blood cells -Serial hemoglobin levels -Colonoscopy prep -Consult Dr. Ojeda for colonoscopy and EGD in a.m. ACUTE BLOOD LOSS ANEMIA-secondary to current GI bleed. Most recent outpatient hemoglobin level was within normal range -Management as above HYPERTENSION -Hold amlodipine -Continue beta-anayeli and SHORTY inhibitor MAINTENANCE ISSUES -DVT prophylaxis; SCUDs, anticoagulation contraindicated because of acute hemorrhage -GI prophylaxis; Protonix as above -Eid catheter; not indicated -Nutrition; clear liquid diet, n.p.o. after midnight -Nicotine dependence; not required CODE STATUS-FULL CODE ADMISSION STATUS-patient will be admitted to inpatient status, expect at least a 2 night hospital stay for evaluation and management of problems as outlined above. At the time of this admission I do not reasonably expected evaluation and management of this problem will require more than a 96 hour hospital stay. DISPOSITION-anticipate discharge to home after the hospital stay. PRIMARY CARE PROVIDER-Dr. Frances - Mortality Measure Prognosis:: Good
[2020-12-15] MEDS: Pantoprazole 80 MG in Sodium Chloride 0.9% 100 ML IV SCH ×2 (14:14→23:46)
[2020-12-15] MEDS ORDERED: Sodium Chloride 0.9% 10 ML Syringe FLUSH PRN (14:19)
[2020-12-15] MEDS ORDERED: Bisacodyl 5 MG Tab PO ONE ×2 (14:19→20:00)
[2020-12-15] MEDS ORDERED: Ondansetron 4 MG/2 ML SDV IV PRN (14:19)
[2020-12-15] MEDS ORDERED: Acetaminophen 325 MG Tab PO PRN (14:19)
[2020-12-15] MEDS ORDERED: Polyethylene Glycol 3350 Powder 238 GM Bot PO ONE (17:00)
[2020-12-15] MEDS: Sodium Chloride 0.9% 1,000 ML IV SCH (19:22)
[2020-12-15] MEDS: Acetaminophen 500 MG Tab PO PRN (21:00)
[2020-12-15] MEDS: hydrALAZINE 25 MG Tab PO SCH (21:00)
[2020-12-15] MEDS: Melatonin 3 MG Tab PO PRN (21:00)
[2020-12-15] MEDS: diphenhydrAMINE 25 MG Cap PO PRN (21:01)
[2020-12-16] MEDS: Sodium Chloride 0.9% 1,000 ML IV SCH ×3 (03:30→16:20)
[2020-12-16] MEDS: Pantoprazole 80 MG in Sodium Chloride 0.9% 100 ML IV SCH ×2 (08:38→10:52)
[2020-12-16] MEDS: hydrALAZINE 25 MG Tab PO SCH ×2 (08:40→21:04)
[2020-12-16] MEDS: Pravastatin 20 MG Tab PO SCH (08:40)
[2020-12-16] MEDS ORDERED: Propofol 200 MG/20 ML SDV ONE ×2 (13:28→15:15)
[2020-12-16] MEDS ORDERED: fentaNYL 100 MCG/2 ML SDV ONE (13:28)
--- NOTE | 2020-12-16 18:01 | PCM.PN ---
- General Info Date of Service: 12/16/20 Subjective Update: Mr. Jackson has been stable since admission with no further evidence of active bleeding. He has received transfusion of red blood cells and denies symptoms of lightheadedness, weakness, or shortness of breath. Colonoscopy and EGD were performed this afternoon by Dr. Ojeda. EGD was unremarkable other than abnormal appearance of the duodenum and biopsies were obtained but there was no obvious source of bleeding identified. Colonoscopy did show some diverticuli and a few small polyps that were removed. Again there was no evidence of obvious source of bleeding noted in the colon. Functional Status: Reports: Ambulating, Urinating - Review of Systems General: Reports: No Symptoms Pulmonary: Reports: No Symptoms Cardiovascular: Reports: No Symptoms Gastrointestinal: Reports: No Symptoms Genitourinary: Reports: No Symptoms - Patient Data Vitals - Most Recent: Last Vital Signs Temp 97.6 F 12/16/20 17:03 Pulse 92 12/16/20 17:27 Resp 19 12/16/20 17:27 BP 166/61 H 12/16/20 17:27 Pulse Ox 100 12/16/20 17:27 Weight - Most Recent: 205 lb 11.2 oz I&O - Last 24 Hours: Intake & Output 12/16/20 12/16/20 12/16/20 06:59 14:59 22:59 Intake Total 3382 1495 Output Total 240 625 Balance 3142 -625 1495 Lab Results Last 24 Hours: Laboratory Results - last 24 hr 12/15/20 12/15/20 12/16/20 Range/Units 12:25 19:23 00:01 WBC (4.5-11.0) K/uL RBC (4.30-5.90) M/uL Hgb 7.8 L D 8.6 L (12.0-15.0) g/dL Hct (40.0-54.0) % MCV (80-98) fL MCH (27-31) pg MCHC (32-36) % Plt Count (150-400) K/uL Add Manual Diff Neutrophils % (Manual) (36-66) % Band Neutrophils % (5-11) % Lymphocytes % (Manual) (24-44) % Monocytes % (Manual) (2-6) % Macrocytosis Sodium (140-148) mmol/L Potassium (3.6-5.2) mmol/L Chloride (100-108) mmol/L Carbon Dioxide (21-32) mmol/L Anion Gap (5.0-14.0) mmol/L BUN (7-18) mg/dL Creatinine (0.8-1.3) mg/dL Est Cr Clr Drug Dosing mL/min Estimated GFR (MDRD) (>60) Glucose (74-106) mg/dL Calcium (8.5-10.1) mg/dL Blood Type B POSITIVE Gel Antibody Screen Negative Crossmatch See Detail 12/16/20 12/16/20 12/16/20 Range/Units 06:00 06:00 13:26 WBC 6.2 (4.5-11.0) K/uL RBC 2.65 L (4.30-5.90) M/uL Hgb 8.6 L 9.0 L (12.0-15.0) g/dL Hct 25.8 L (40.0-54.0) % MCV 97 (80-98) fL MCH 33 H (27-31) pg MCHC 33 (32-36) % Plt Count 188 (150-400) K/uL Add Manual Diff Yes Neutrophils % (Manual) 76 H (36-66) % Band Neutrophils % 5 (5-11) % Lymphocytes % (Manual) 10 L (24-44) % Monocytes % (Manual) 9 H (2-6) % Macrocytosis Few Sodium 141 (140-148) mmol/L Potassium 3.6 (3.6-5.2) mmol/L Chloride 107 (100-108) mmol/L Carbon Dioxide 20 L (21-32) mmol/L Anion Gap 17.6 H (5.0-14.0) mmol/L BUN 66 H (7-18) mg/dL Creatinine 1.8 H (0.8-1.3) mg/dL Est Cr Clr Drug Dosing 36.99 mL/min Estimated GFR (MDRD) 36 L (>60) Glucose 99 (74-106) mg/dL Calcium 8.3 L (8.5-10.1) mg/dL Blood Type Gel Antibody Screen Crossmatch Shakeel Results Last 24 Hours: Microbiology 12/15/20 11:29 Stool Occult Blood (SHAKEEL) - Final Stool / Feces Med Orders - Current: Current Medications Acetaminophen (Acetaminophen 325 Mg Tab) 650 mg PO Q4H PRN PRN Reason: Pain (Mild 1-3)/fever Acetaminophen (Acetaminophen 500 Mg Tab) 1,000 mg PO BEDTIME PRN PRN Reason: Insomnia Last Admin: 12/15/20 21:00 Dose: 1,000 mg Documented by: Diphenhydramine HCl (Diphenhydramine 25 Mg Cap) 50 mg PO BEDTIME PRN PRN Reason: Insomnia Last Admin: 12/15/20 21:01 Dose: 50 mg Documented by: Hydralazine HCl (Hydralazine 25 Mg Tab) 75 mg PO BID [facility] Last Admin: 12/16/20 08:40 Dose: 75 mg Documented by: Melatonin (Melatonin 3 Mg Tab) 9 mg PO BEDTIME PRN PRN Reason: Insomnia Last Admin: 12/15/20 21:00 Dose: 9 mg Documented by: Metoprolol Succinate (Metoprolol Succinate 50 Mg Tab.Er) 100 mg PO QAM [facility] Ondansetron HCl (Ondansetron 4 Mg/2 Ml Sdv) 4 mg IV Q4H PRN PRN Reason: Nausea/Vomiting Pravastatin Sodium (Pravastatin 20 Mg Tab) 20 mg PO DAILY [facility] Last Admin: 12/16/20 08:40 Dose: 20 mg Documented by: Sodium Chloride (Sodium Chloride 0.9% 10 Ml Syringe) 10 ml FLUSH ASDIRECTED PRN PRN Reason: Keep Vein Open Discontinued Medications Acetaminophen (Acetaminophen 500 Mg Tab) 1,000 mg PO ONETIME ONE Stop: 12/15/20 13:56 Last Admin: 12/15/20 14:16 Dose: 1,000 mg Documented by: Bisacodyl (Bisacodyl 5 Mg Tab) 10 mg PO ONETIME ONE Stop: 12/15/20 14:20 Last Admin: 12/15/20 15:22 Dose: 10 mg Documented by: Bisacodyl (Bisacodyl 5 Mg Tab) 10 mg PO ONETIME ONE Stop: 12/15/20 20:01 Last Admin: 12/15/20 21:01 Dose: 10 mg Documented by: Fentanyl (Fentanyl 100 Mcg/2 Ml Sdv) Confirm Administered Dose 100 mcg .ROUTE .STK-MED ONE Stop: 12/16/20 13:29 Pantoprazole Sodium 80 mg/ (Sodium Chloride) 100 mls @ 10 mls/hr IV Q10H [facility] Stop: 12/16/20 17:55 Last Admin: 12/16/20 10:52 Dose: Not Given Documented by: Sodium Chloride (Normal Saline) 1,000 mls @ 125 mls/hr IV ASDIRECTED JOSE Last Admin: 12/16/20 16:20 Dose: 125 mls/hr Documented by: Pantoprazole Sodium 80 mg/ (Sodium Chloride) 100 mls @ 10 mls/hr IV Q10H [facility] Pantoprazole Sodium (Pantoprazole 40 Mg Vial) 80 mg IVPUSH .BOLUS [facility] Last Admin: 12/15/20 11:58 Dose: 80 mg Documented by: Polyethylene Glycol (Polyethylene Glycol 3350 Powder 238 Gm Bot) 238 gm PO ONETIME ONE Stop: 12/15/20 17:01 Last Admin: 12/15/20 17:32 Dose: 238 gm Documented by: Propofol (Propofol 200 Mg/20 Ml Sdv) Confirm Administered Dose 200 mg .ROUTE .STK-MED ONE Stop: 12/16/20 13:29 Propofol (Propofol 200 Mg/20 Ml Sdv) Confirm Administered Dose 200 mg .ROUTE .STK-MED ONE Stop: 12/16/20 15:16 - Exam Quality Assessment: DVT Prophylaxis General: Alert, Oriented, Cooperative, No Acute Distress Lungs: Clear to Auscultation, Normal Respiratory Effort Cardiovascular: Regular Rate, Regular Rhythm, No Murmurs GI/Abdominal Exam: Soft, Non-Tender, No Organomegaly, No Distention Extremities: Non-Tender, No Pedal Edema - Patient Data Lab Results Last 24 hrs: Laboratory Results - last 24 hr 12/15/20 12/15/20 12/16/20 Range/Units 12:25 19:23 00:01 WBC (4.5-11.0) K/uL RBC (4.30-5.90) M/uL Hgb 7.8 L D 8.6 L (12.0-15.0) g/dL Hct (40.0-54.0) % MCV (80-98) fL MCH (27-31) pg MCHC (32-36) % Plt Count (150-400) K/uL Add Manual Diff Neutrophils % (Manual) (36-66) % Band Neutrophils % (5-11) % Lymphocytes % (Manual) (24-44) % Monocytes % (Manual) (2-6) % Macrocytosis Sodium (140-148) mmol/L Potassium (3.6-5.2) mmol/L Chloride (100-108) mmol/L Carbon Dioxide (21-32) mmol/L Anion Gap (5.0-14.0) mmol/L BUN (7-18) mg/dL Creatinine (0.8-1.3) mg/dL Est Cr Clr Drug Dosing mL/min Estimated GFR (MDRD) (>60) Glucose (74-106) mg/dL Calcium (8.5-10.1) mg/dL Blood Type B POSITIVE Gel Antibody Screen Negative Crossmatch See Detail 12/16/20 12/16/20 12/16/20 Range/Units 06:00 06:00 13:26 WBC 6.2 (4.5-11.0) K/uL RBC 2.65 L (4.30-5.90) M/uL Hgb 8.6 L 9.0 L (12.0-15.0) g/dL Hct 25.8 L (40.0-54.0) % MCV 97 (80-98) fL MCH 33 H (27-31) pg MCHC 33 (32-36) % Plt Count 188 (150-400) K/uL Add Manual Diff Yes Neutrophils % (Manual) 76 H (36-66) % Band Neutrophils % 5 (5-11) % Lymphocytes % (Manual) 10 L (24-44) % Monocytes % (Manual) 9 H (2-6) % Macrocytosis Few Sodium 141 (140-148) mmol/L Potassium 3.6 (3.6-5.2) mmol/L Chloride 107 (100-108) mmol/L Carbon Dioxide 20 L (21-32) mmol/L Anion Gap 17.6 H (5.0-14.0) mmol/L BUN 66 H (7-18) mg/dL Creatinine 1.8 H (0.8-1.3) mg/dL Est Cr Clr Drug Dosing 36.99 mL/min Estimated GFR (MDRD) 36 L (>60) Glucose 99 (74-106) mg/dL Calcium 8.3 L (8.5-10.1) mg/dL Blood Type Gel Antibody Screen Crossmatch Result Diagrams: 12/16/20 13:26 12/16/20 06:00 Shakeel Results Last 24 hrs: Microbiology 12/15/20 11:29 Stool Occult Blood (SHAKEEL) - Final Stool / Feces Sepsis Event Note - Evaluation Sepsis Screening Result: No Definite Risk - Focused Exam Vital Signs: Vital Signs Temp Pulse Resp BP BP Pulse Ox 12/16/20 17:27 92 19 166/61 H 100 12/16/20 17:03 97.6 F 89 16 177/62 H 100 12/16/20 16:38 87 16 164/68 H 100 12/16/20 16:18 89 13 171/56 H 100 12/16/20 16:04 97.1 F 79 13 167/65 H 100 12/16/20 15:40 98.4 F 81 18 149/63 H 100 12/16/20 15:35 81 18 154/75 H 100 12/16/20 15:30 80 18 143/53 H 100 12/16/20 15:25 81 18 126/60 100 12/16/20 15:20 97.9 F 69 16 121/50 L 100 12/16/20 14:00 97.5 F 66 16 129/81 100 12/16/20 12:00 97.1 F 86 10 L 126/75 12/16/20 10:00 81 14 126/65 12/16/20 08:40 127/58 L 12/16/20 08:00 97.1 F 77 20 127/58 L 97 12/16/20 06:00 86 12 150/78 H 100 - Problem List Review Problem List Initiated/Reviewed/Updated: Yes - My Orders Last 24 Hours: My Active Orders 12/15/20 19:51 Transfuse Red Blood Cells [COMM] Stat 12/15/20 20:36 Melatonin 9 mg PO BEDTIME PRN 12/15/20 20:37 diphenhydrAMINE [Benadryl] 50 mg PO BEDTIME PRN 12/15/20 20:38 Acetaminophen [Tylenol Extra Strength] 1,000 mg PO BEDTIME PRN 12/15/20 21:00 hydrALAZINE [Apresoline] 75 mg PO BID 12/16/20 09:00 Metoprolol Succinate [Toprol XL] 100 mg PO QAM Pravastatin [Pravachol] 20 mg PO DAILY 12/16/20 Dinner GI Soft Low Fiber [Soft Diet] [DIET] 12/16/20 17:08 Convert IV to Saline Lock [OM.PC] Routine 12/16/20 21:00 HGB [HEMOGLOBIN] [HEME] Stat 12/17/20 05:00 BASIC METABOLIC PANEL,BMP [CHEM] Timed CBC WITH AUTO DIFF [HEME] Timed - Plan Plan:: ASSESSMENT AND PLAN ACUTE GI BLEED-stable since admission with no evidence of active bleeding. Other than diverticuli in the colon there was no obvious source of bleeding identified in the colon or on EGD. -Soft low residue diet -Hold Plavix -Serial hemoglobin levels -Outpatient follow-up with gastroenterology ACUTE BLOOD LOSS ANEMIA-secondary to current GI bleed. 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 Metoprolol has been held with improvement in heart rate. -Hold metoprolol HYPERTENSION -Hold amlodipine -Continue SHORTY inhibitor MAINTENANCE ISSUES -DVT prophylaxis; SCUDs, anticoagulation contraindicated because of acute hemorrhage -GI prophylaxis; Protonix as above -Eid catheter; not indicated -Nutrition; soft low residue diet -Nicotine dependence; not required CODE STATUS-FULL CODE ADMISSION STATUS-patient will be admitted to inpatient status, expect at least a 2 night hospital stay for evaluation and management of problems as outlined above. At the time of this admission I do not reasonably expected evaluation and management of this problem will require more than a 96 hour hospital stay. DISPOSITION-anticipate discharge to home after the hospital stay. PRIMARY CARE PROVIDER-Dr. Frances
[2020-12-16] MEDS ORDERED: Pantoprazole 80 MG in Sodium Chloride 0.9% 100 ML IV SCH (18:15)
[2020-12-16] MEDS: amLODIPine 5 MG Tab PO SCH (18:19)
[2020-12-16] MEDS: Acetaminophen 500 MG Tab PO PRN (21:06)
[2020-12-16] MEDS: diphenhydrAMINE 25 MG Cap PO PRN (21:07)
[2020-12-16] MEDS: Melatonin 3 MG Tab PO PRN (21:07)
--- NOTE | 2020-12-17 08:23 | OR ---
DATE OF PROCEDURE: 12/16/2020 SURGEON: Graham Ojeda MD PROCEDURES: 1. Esophagogastroduodenoscopy. 2. Colonoscopy. FINDINGS: 1. Atrophy and ischemia of a few of the petechiae in duodenum (biopsied using cold biopsy forceps). 2. Transverse colon polyp, approximately 5 mm, completely removed using cold biopsy forceps. 3. Sigmoid colon polyp, approximately 8 mm, completely removed using hot snare wire device. 4. Diverticulosis, extensive. 5. Significantly tortuous sigmoid colon. 6. No old or new blood. 7. Marginal/poor colon prep. RISKS: Risks, benefits, alternatives, and limitations including, but not limited to infection, bleeding, perforation, false positives and false negatives were explained to the patient and he wished to proceed. PROCEDURE IN DETAIL: The patient was placed in the left lateral decubitus position. The EGD scope was introduced and advanced atraumatically to second part of the duodenum. No evidence of duodenitis or ulceration. No old or new blood within the stomach. There was no gastritis or ulceration. The GE junction was normal. The esophagus was normal. Digital rectal exam was performed without abnormality. Scope was introduced and advanced atraumatically to the ileocecal valve. A photo was taken of the appendiceal orifice. Scope was brought back to the ascending, transverse, descending colon, and retroflexed. The aforementioned polyps were identified and completely removed. No abnormal bleeding was noted on removal. With respect to the etiology of GI bleeding, there was no active or old blood, but diverticulosis could be the etiology of this. No abnormalities on retroflexion. The prep was poor, approximately 80% to 85% of the luminal surface could be seen and greater than 8 minutes was spent removing the scope. The patient tolerated the procedure well. Graham Ojeda MD /[id number]
[2020-12-17] MEDS: amLODIPine 5 MG Tab PO SCH (08:48)
[2020-12-17] MEDS: Pravastatin 20 MG Tab PO SCH (08:50)
[2020-12-17] MEDS: Metoprolol Succinate 50 MG Tab.ER PO SCH ×2 (08:51→09:02)
[2020-12-17] MEDS: hydrALAZINE 25 MG Tab PO SCH (08:52)
[2020-12-17] MEDS ORDERED: Potassium Chloride 20 MEQ Tab.ER PO ONE (09:00)
[2020-12-17 09:40] VITALS: BP 150/64; PULSE 85
--- NOTE | 2020-12-17 10:52 | PCM.DCSUM1 ---
Discharge Summary - Hospital Course Brief History: Mr. Jackson is an 80-year-old gentleman who was admitted through the emergency department with weakness and lightheadedness secondary to severe anemia and underlying GI bleed. - Discharge Data Discharge Date: 12/17/20 Discharge Disposition: Home, Self-Care 01 Condition: Fair - Referral to Home Health Primary Care Physician: Cody Frances MD - Discharge Diagnosis/Problem(s) (1) GI bleed SNOMED Code(s): 08120082 ICD Code: K92.2 - GASTROINTESTINAL HEMORRHAGE, UNSPECIFIED Status: Acute Current Visit: Yes Qualifiers: GI bleed type/associated pathology: melena Qualified Code(s): K92.1 - Melena (2) History of adenomatous polyp of colon SNOMED Code(s): 933540716 ICD Code: Z86.010 - PERSONAL HISTORY OF COLONIC POLYPS Status: Chronic Current Visit: No (3) Anemia, blood loss SNOMED Code(s): 059309240 ICD Code: D50.0 - IRON DEFICIENCY ANEMIA SECONDARY TO BLOOD LOSS (CHRONIC) Status: Acute Current Visit: Yes (4) Chronic renal insufficiency, stage III (moderate) SNOMED Code(s): 944962532 ICD Code: N18.3 - CHRONIC KIDNEY DISEASE, STAGE 3 (MODERATE) * DO NOT USE * Status: Chronic Priority: Medium Current Visit: No (5) Heart block AV second degree SNOMED Code(s): 634662707 ICD Code: I44.1 - ATRIOVENTRICULAR BLOCK, SECOND DEGREE Status: Acute Current Visit: Yes - Patient Summary/Data Consults: Consultations 12/15/20 14:19 Consult to Physician [CONS] Routine Consulting Provider: Graham Ojeda Call Completed to Consulting Physician: Yes Reason for Consult: Acute GI bleed, EGD and colonoscopy in a. Hospital Course: Mr. Jackson is an 80-year-old gentleman who was admitted through the emergency department with progressive weakness and lightheadedness, secondary to a GI bleed. He has a history of GI bleed earlier this year and was hospitalized in [place]. At that time colonoscopy was performed which apparently showed 2 polyps that were removed and felt to represent the source of bleeding. A week later he experienced similar symptoms and underwent another colonoscopy where a third polyp was found and removed. Since then he has been stable and felt well until this week when he developed nausea and vomiting as well as diarrhea. Emesis and stools have appeared to be brown in color. Over the last few days he has become progressively more weak and presented to the emergency department today for further evaluation. Laboratory studies show significant anemia with a hemoglobin of 5.6. He was given a bolus dose of IV Protonix 80 mg in the emergency department and then started on a continuous infusion of IV Protonix. He was transfused 2 units of blood which was started in the emergency department. He was admitted to the hospital to the intensive care unit. Serial hemoglobin levels were obtained. After 2 units of blood his hemoglobin was 7.8 but because of the acute bleed he was transfused 1 additional unit of red blood cells. By the time of discharge hemoglobin had remained stable in the range of 8.5. On admission he was given a colonoscopy prep and was seen the following day by Dr. Ojeda. EGD was performed which showed no obvious source of bleeding, mucosa in the duodenum appeared to be mildly to moderately abnormal and a biopsy was obtained which is pending at the time of discharge. Colonoscopy showed diverticuli and a few small polyps that were removed by Dr. Ojeda. There was no evidence of active bleeding or old blood noted within the colon. During his hospital stay he was monitored on telemetry and found to have episodes where his heart rate would dip into the 40s associated with second-degree AV block type I. His metoprolol was held, he continued to experience episodes of Wenke Bach but had no further bradycardia. Metoprolol will be held at the time of discharge. His Plavix was held during hospitalization and will be resumed at the time of discharge. Activity will be as tolerated and he will be on a soft low residue diet. Follow-up appointment will be scheduled with his primary care provider within 1 week. CBC should be obtained at the time of follow-up appointment and he is instructed to return to the emergency department if he notes any further bleeding. Consider gastroenterology consult concerning recurrent episodes of bleeding with no identifiable source. - Patient Instructions Diet: GI Soft/Low Residue/Low Fiber Activity: As Tolerated Other/Special Instructions: Please schedule follow-up appointment with Dr. Frances within 1 week. CBC should be obtained at the time of follow-up appointment. Consider referral to gastroenterology for further evaluation of recurrent GI bleeds without identified source. - Discharge Plan *PRESCRIPTION DRUG MONITORING PROGRAM REVIEWED*: Not Applicable *COPY OF PRESCRIPTION DRUG MONITORING REPORT IN PATIENT ARNIE: Not Applicable Home Medications: Home Meds Potassium Chloride [Klor-Con M20] 20 meq PO QAM 11/19/12 [History] hydrALAZINE [Apresoline] 75 mg PO BID 12/18/12 [History] Pravastatin Sodium [Pravachol] 20 mg PO DAILY 10/10/15 [History] Clopidogrel Bisulfate [Clopidogrel] 75 mg PO DAILY 02/11/17 [History] Ferrous Sulfate 324 mg PO DAILY 08/10/18 [History] amLODIPine [Norvasc] 5 mg PO DAILY 08/10/18 [History] Acetaminophen/Diphenhydramine [Tylenol Pm Ex-Strength Caplet] 2 tab PO BEDTIME PRN 12/15/20 [History] Melatonin 30 mg PO BEDTIME 12/15/20 [History] Referrals: Cody Frances MD [Primary Care Provider] - - Discharge Summary/Plan Comment DC Time >30 min.: No Total # of Minutes for Discharge Time: 20 - Patient Data Vitals - Most Recent: Last Vital Signs Temp 97.4 F 12/17/20 07:56 Pulse 85 12/17/20 09:39 Resp 16 12/17/20 07:56 BP 150/64 H 12/17/20 09:39 Pulse Ox 99 12/17/20 07:56 Weight - Most Recent: 205 lb 11.2 oz I&O - Last 24 hours: Intake & Output 12/16/20 12/17/20 12/17/20 22:59 06:59 14:59 Intake Total 2745 600 400 Output Total 350 950 300 Balance 2395 -350 100 Lab Results - Last 24 hrs: Laboratory Results - last 24 hr 12/16/20 12/16/20 12/17/20 Range/Units 13:26 21:00 04:55 WBC 4.9 (4.5-11.0) K/uL RBC 2.64 L (4.30-5.90) M/uL Hgb 9.0 L 8.6 L 8.5 L (12.0-15.0) g/dL Hct 26.2 L (40.0-54.0) % MCV 99 H (80-98) fL MCH 32 H (27-31) pg MCHC 32 (32-36) % Plt Count 185 (150-400) K/uL Add Manual Diff Yes Neutrophils % (Manual) 79 H (36-66) % Band Neutrophils % 1 L (5-11) % Lymphocytes % (Manual) 8 L (24-44) % Monocytes % (Manual) 6 (2-6) % Eosinophils % (Manual) 1 L (2-4) % Metamyelocytes % 2 % Myelocytes % 3 % Atypical Lymphocytes Few Polychromasia Moderate H Hypochromasia Few Anisocytosis Few Microcytosis Few Macrocytosis Few Sodium (140-148) mmol/L Potassium (3.6-5.2) mmol/L Chloride (100-108) mmol/L Carbon Dioxide (21-32) mmol/L Anion Gap (5.0-14.0) mmol/L BUN (7-18) mg/dL Creatinine (0.8-1.3) mg/dL Est Cr Clr Drug Dosing mL/min Estimated GFR (MDRD) (>60) Glucose (74-106) mg/dL Calcium (8.5-10.1) mg/dL 12/17/20 Range/Units 04:55 WBC (4.5-11.0) K/uL RBC (4.30-5.90) M/uL Hgb (12.0-15.0) g/dL Hct (40.0-54.0) % MCV (80-98) fL MCH (27-31) pg MCHC (32-36) % Plt Count (150-400) K/uL Add Manual Diff Neutrophils % (Manual) (36-66) % Band Neutrophils % (5-11) % Lymphocytes % (Manual) (24-44) % Monocytes % (Manual) (2-6) % Eosinophils % (Manual) (2-4) % Metamyelocytes % % Myelocytes % % Atypical Lymphocytes Polychromasia Hypochromasia Anisocytosis Microcytosis Macrocytosis Sodium 142 (140-148) mmol/L Potassium 3.5 L (3.6-5.2) mmol/L Chloride 108 (100-108) mmol/L Carbon Dioxide 21 (21-32) mmol/L Anion Gap 16.5 H (5.0-14.0) mmol/L BUN 37 H (7-18) mg/dL Creatinine 1.5 H (0.8-1.3) mg/dL Est Cr Clr Drug Dosing 44.39 mL/min Estimated GFR (MDRD) 45 L (>60) Glucose 93 (74-106) mg/dL Calcium 7.9 L (8.5-10.1) mg/dL JOHANN Results - Last 24 hrs: Microbiology 12/15/20 11:29 Stool Occult Blood (JOHANN) - Final Stool / Feces Med Orders - Current: Current Medications Acetaminophen (Acetaminophen 325 Mg Tab) 650 mg PO Q4H PRN PRN Reason: Pain (Mild 1-3)/fever Acetaminophen (Acetaminophen 500 Mg Tab) 1,000 mg PO BEDTIME PRN PRN Reason: Insomnia Last Admin: 12/16/20 21:06 Dose: 1,000 mg Documented by: Amlodipine Besylate (Amlodipine 5 Mg Tab) 5 mg PO DAILY [facility] Last Admin: 12/17/20 08:48 Dose: 5 mg Documented by: Diphenhydramine HCl (Diphenhydramine 25 Mg Cap) 50 mg PO BEDTIME PRN PRN Reason: Insomnia Last Admin: 12/16/20 21:07 Dose: 50 mg Documented by: Hydralazine HCl (Hydralazine 25 Mg Tab) 75 mg PO BID [facility] Last Admin: 12/17/20 08:52 Dose: 75 mg Documented by: Melatonin (Melatonin 3 Mg Tab) 9 mg PO BEDTIME PRN PRN Reason: Insomnia Last Admin: 12/16/20 21:07 Dose: 9 mg Documented by: Metoprolol Succinate (Metoprolol Succinate 50 Mg Tab.Er) 100 mg PO QAM [facility] Last Admin: 12/17/20 09:02 Dose: Not Given Documented by: Ondansetron HCl (Ondansetron 4 Mg/2 Ml Sdv) 4 mg IV Q4H PRN PRN Reason: Nausea/Vomiting Pravastatin Sodium (Pravastatin 20 Mg Tab) 20 mg PO DAILY [facility] Last Admin: 12/17/20 08:50 Dose: 20 mg Documented by: Sodium Chloride (Sodium Chloride 0.9% 10 Ml Syringe) 10 ml FLUSH ASDIRECTED PRN PRN Reason: Keep Vein Open Discontinued Medications Acetaminophen (Acetaminophen 500 Mg Tab) 1,000 mg PO ONETIME ONE Stop: 12/15/20 13:56 Last Admin: 12/15/20 14:16 Dose: 1,000 mg Documented by: Bisacodyl (Bisacodyl 5 Mg Tab) 10 mg PO ONETIME ONE Stop: 12/15/20 14:20 Last Admin: 12/15/20 15:22 Dose: 10 mg Documented by: Bisacodyl (Bisacodyl 5 Mg Tab) 10 mg PO ONETIME ONE Stop: 12/15/20 20:01 Last Admin: 12/15/20 21:01 Dose: 10 mg Documented by: Fentanyl (Fentanyl 100 Mcg/2 Ml Sdv) Confirm Administered Dose 100 mcg .ROUTE .STK-MED ONE Stop: 12/16/20 13:29 Pantoprazole Sodium 80 mg/ (Sodium Chloride) 100 mls @ 10 mls/hr IV Q10H [facility] Stop: 12/16/20 17:55 Last Admin: 12/16/20 10:52 Dose: Not Given Documented by: Sodium Chloride (Normal Saline) 1,000 mls @ 125 mls/hr IV ASDIRECTED [facility] Last Admin: 12/16/20 16:20 Dose: 125 mls/hr Documented by: Pantoprazole Sodium 80 mg/ (Sodium Chloride) 100 mls @ 10 mls/hr IV Q10H [facility] Pantoprazole Sodium (Pantoprazole 40 Mg Vial) 80 mg IVPUSH .BOLUS [facility] Last Admin: 12/15/20 11:58 Dose: 80 mg Documented by: Polyethylene Glycol (Polyethylene Glycol 3350 Powder 238 Gm Bot) 238 gm PO ONETIME ONE Stop: 12/15/20 17:01 Last Admin: 12/15/20 17:32 Dose: 238 gm Documented by: Potassium Chloride (Potassium Chloride 20 Meq Tab.Er) 40 meq PO ONETIME ONE Stop: 12/17/20 09:01 Last Admin: 12/17/20 08:49 Dose: 40 meq Documented by: Propofol (Propofol 200 Mg/20 Ml Sdv) Confirm Administered Dose 200 mg .ROUTE .S TK-MED ONE Stop: 12/16/20 13:29 Propofol (Propofol 200 Mg/20 Ml Sdv) Confirm Administered Dose 200 mg .ROUTE .STK-MED ONE Stop: 12/16/20 15:16 - Exam General: Reports: Alert, Oriented, Cooperative, No Acute Distress Lungs: Reports: Clear to Auscultation, Normal Respiratory Effort Cardiovascular: Reports: Regular Rate, Regular Rhythm, No Murmurs GI/Abdominal Exam: Soft, Non-Tender, No Organomegaly, No Distention Extremities: Non-Tender, No Pedal Edema *Q Meaningful Use (DIS) - VTE *Q VTE Pharmacological Contraindications *Q: Active Hemorrhage
== END 2020-12-17 11:32 | disposition home or self-care (01) | DRG 378 ==
LOC: JP.ED 10:33 → JP.ICU 13:45
PROVIDERS: ADMIT Hospitalist; ATTEND Hospitalist
PROC: 30233N1 Transfusion of Nonautologous Red Blood Cells into Peripheral Vein, Percutaneous Approach (ICD-10-PCS; principal; 2020-12-15)
PROC: 0DB98ZX Excision of Duodenum, Via Natural or Artificial Opening Endoscopic, Diagnostic (ICD-10-PCS; 2020-12-16)
PROC: 0DBN8ZZ Excision of Sigmoid Colon, Via Natural or Artificial Opening Endoscopic (ICD-10-PCS; 2020-12-16)
PROC: 0DBL8ZZ Excision of Transverse Colon, Via Natural or Artificial Opening Endoscopic (ICD-10-PCS; 2020-12-16)
DX: K57.31 Diverticulosis of large intestine without perforation or abscess with bleeding (principal); D50.0 Iron deficiency anemia secondary to blood loss (chronic); D62 Acute posthemorrhagic anemia; K55.9 Vascular disorder of intestine, unspecified; Z86.010 Personal history of colon polyps; I10 Essential (primary) hypertension; N18.30 Chronic kidney disease, stage 3 unspecified; Z87.19 Personal history of other diseases of the digestive system; E61.1 Iron deficiency; I44.1 Atrioventricular block, second degree; H54.7 Unspecified visual loss; H91.90 Unspecified hearing loss, unspecified ear; Z20.822 Contact with and (suspected) exposure to COVID-19; Z96.642 Presence of left artificial hip joint; E78.00 Pure hypercholesterolemia, unspecified; Z85.828 Personal history of other malignant neoplasm of skin; Z79.02 Long term (current) use of antithrombotics/antiplatelets; Z79.899 Other long term (current) drug therapy; Z86.19 Personal history of other infectious and parasitic diseases; Z90.89 Acquired absence of other organs; Z95.5 Presence of coronary angioplasty implant and graft; Z90.49 Acquired absence of other specified parts of digestive tract; I12.9 Hypertensive chronic kidney disease with stage 1 through stage 4 chronic kidney disease, or unspecified chronic kidney disease
CPT/HCPCS: 36415; 36430; 80048; 82272; 85018; 85025; 86850; 86900; 86901; 86920; 86922; 88305; 99285; A9270-GY; C9113; J2704; J3010; J7030; P9016; U0002

== ENCOUNTER 2021-04-07 14:35 | Inpatient (IN) | payer MEDICARE, BC ==
[2021-04-07] MEDS ORDERED: Sodium Chloride 0.9% 10 ML Syringe FLUSH PRN ×2 (14:38→18:36)
[2021-04-07] MEDS ORDERED: Sodium Chloride 0.9% 1,000 ML IV ONE (14:39)
[2021-04-07] MEDS ORDERED: Famotidine 20 MG/2 ML SDV IVPUSH ONE (14:48)
[2021-04-07] MEDS ORDERED: Pantoprazole 40 MG Vial IVPUSH SCH (15:00)
[2021-04-07] MEDS: Pantoprazole 80 MG in Sodium Chloride 0.9% 100 ML IV SCH (18:34)
[2021-04-07] MEDS ORDERED: Acetaminophen 325 MG Tab PO PRN (18:36)
[2021-04-07] MEDS ORDERED: Ondansetron 4 MG/2 ML SDV IV PRN (18:36)
[2021-04-07 18:39] LABS: CORONAVIRUS COVID-19 NAA NEGATIVE (NEGATIVE)
[2021-04-07] MEDS: Sodium Chloride 0.9% 1,000 ML IV SCH (19:35)
[2021-04-07] MEDS: hydrALAZINE 25 MG Tab PO SCH (20:56)
[2021-04-07] MEDS: Melatonin 3 MG Tab PO SCH (20:57)
[2021-04-08] MEDS: Sodium Chloride 0.9% 1,000 ML IV SCH ×2 (02:52→08:05)
[2021-04-08] MEDS: Pantoprazole 80 MG in Sodium Chloride 0.9% 100 ML IV SCH (04:36)
[2021-04-08] MEDS ORDERED: fentaNYL 100 MCG/2 ML SDV ONE (07:05)
[2021-04-08] MEDS ORDERED: Propofol 200 MG/20 ML SDV ONE (07:05)
[2021-04-08] MEDS: hydrALAZINE 25 MG Tab PO SCH ×2 (08:15→20:50)
[2021-04-08] MEDS: Pravastatin 20 MG Tab PO SCH (08:15)
[2021-04-08] MEDS ORDERED: Pantoprazole 80 MG in Sodium Chloride 0.9% 100 ML IV SCH (14:00)
[2021-04-08] MEDS ORDERED: Pantoprazole 40 MG Tab.CR PO SCH ×2 (16:30→21:00)
[2021-04-08] MEDS: Melatonin 3 MG Tab PO SCH (20:50)
[2021-04-08] MEDS: Pantoprazole 40 MG Tab.CR PO SCH (20:50)
[2021-04-09] MEDS ORDERED: Potassium Chloride 20 MEQ Tab.ER PO ONE (09:00)
[2021-04-09 09:26] VITALS: BP 155/65; PULSE 82
[2021-04-09] MEDS: hydrALAZINE 25 MG Tab PO SCH (09:49)
[2021-04-09] MEDS: Pravastatin 20 MG Tab PO SCH (09:51)
[2021-04-09] MEDS: Pantoprazole 40 MG Tab.CR PO SCH (09:51)
== END 2021-04-09 12:26 | disposition home or self-care (01) | DRG 811 ==
LOC: JP.ED 14:35 → JP.MS 17:39
PROVIDERS: ADMIT Hospitalist; ATTEND Hospitalist
PROC: 0DB68ZX Excision of Stomach, Via Natural or Artificial Opening Endoscopic, Diagnostic (ICD-10-PCS; principal; 2021-04-08)
DX: K92.0 Hematemesis (principal); K92.1 Melena; D62 Acute posthemorrhagic anemia; K22.11 Ulcer of esophagus with bleeding; I44.1 Atrioventricular block, second degree; N18.32 Chronic kidney disease, stage 3b; H91.90 Unspecified hearing loss, unspecified ear; H54.7 Unspecified visual loss; E78.00 Pure hypercholesterolemia, unspecified; E61.1 Iron deficiency; Z20.822 Contact with and (suspected) exposure to COVID-19; Z96.642 Presence of left artificial hip joint; I12.9 Hypertensive chronic kidney disease with stage 1 through stage 4 chronic kidney disease, or unspecified chronic kidney disease; Z85.828 Personal history of other malignant neoplasm of skin; Z86.010 Personal history of colon polyps; Z88.8 Allergy status to other drugs, medicaments and biological substances; Z90.49 Acquired absence of other specified parts of digestive tract; Z79.899 Other long term (current) drug therapy; Z87.891 Personal history of nicotine dependence; Z87.19 Personal history of other diseases of the digestive system; Z95.828 Presence of other vascular implants and grafts; Z79.02 Long term (current) use of antithrombotics/antiplatelets
CPT/HCPCS: 0241U; 36415; 80048; 80076; 85014; 85018; 85025; 85610; 85730; 86850; 86900; 86901; 86920; 86922; 87081; 93005; 93306; 93010; 96374; 96375; 99285; 99285-25; A9270-GY; C9113; J2704; J3010; J3490; J7030

== ENCOUNTER 2022-08-09 10:30 | Emergency (ER) | payer MEDICARE, BC ==
[2022-08-09] MEDS ORDERED: Sodium Chloride 0.9% 10 ML Syringe FLUSH PRN (11:14)
[2022-08-09] MEDS ORDERED: Aspirin 81 MG Tab.Chew PO ONE (11:14)
[2022-08-09 11:24] LABS: BASOPHILS PERCENT AUTO 0.2 % (0.1-1.3); EOSINOPHILS PERCENT AUTO 0.2 % (0.0-5.4); HEMOGLOBIN 9.7 g/dL (12.9-16.9); IMMATURE GRAN ABSOLUTE AUTO 0.04 K/uL (0.00-0.23); IMMATURE GRAN PERCENT AUTO 0.8 % (0.0-0.7); LYMPHOCYTES ABSOLUTE AUTO 0.22 K/uL (0.8-3.3); LYMPHOCYTES PERCENT AUTO 4.3 % (11.4-47.7); MEAN CORPUSCULAR HEMOGLOBIN 28.4 pg (31.6-35.5); MEAN CORPUSCULAR HGB CONC 31.3 g/dL (31.6-35.5); MEAN CORPUSCULAR VOLUME 90.6 fL (81.4-99.0); MONOCYTES ABSOLUTE AUTO 0.54 K/uL (0.20-0.90); MONOCYTES PERCENT AUTO 10.5 % (3.3-12.6); NEUTROPHILS ABSOLUTE AUTO 4.33 K/uL (1.0-7.6); PLATELET COUNT,PLT 163 K/uL (130-375); RED BLOOD CELL COUNT 3.42 M/uL (4.14-5.76); WHITE BLOOD CELL COUNT,WBC 5.2 K/uL (3.2-11.0)
[2022-08-09 11:26] LABS: BASOPHILS ABSOLUTE AUTO 0.01 K/uL (0.00-0.10); EOSINOPHILS ABSOLUTE AUTO 0.01 K/uL (0.00-0.40)
[2022-08-09 11:46] LABS: PROTHROMBIN TIME 10.1 sec (9.2-10.6); PTT,PARTIAL THROMBOPLSTIN TIME 25.9 sec (21.8-27.3)
[2022-08-09 11:50] LABS: EST CRCL DRUG DOSING (CG) 21.82 mL/min; POTASSIUM,K 4.6 mmol/L (3.6-5.2)
[2022-08-09 11:51] LABS: ANION GAP 19.6 mmol/L (5.0-14.0); TROPONIN I HIGH SENSITIVITY 62.8 pg/mL (<=60.3)
[2022-08-09] MEDS ORDERED: Sodium Chloride 0.9% 500 ML IV ONE (12:05)
[2022-08-09 14:14] VITALS: BP 110/78; PULSE 93
== END 2022-08-09 15:06 | disposition left against medical advice (07) ==
LOC: JP.ED 10:30
DX: N17.9 Acute kidney failure, unspecified (principal); I13.0 Hypertensive heart and chronic kidney disease with heart failure and stage 1 through stage 4 chronic kidney disease, or unspecified chronic kidney disease; I50.33 Acute on chronic diastolic (congestive) heart failure; N18.32 Chronic kidney disease, stage 3b; I73.9 Peripheral vascular disease, unspecified; I35.0 Nonrheumatic aortic (valve) stenosis; D64.9 Anemia, unspecified; I25.10 Atherosclerotic heart disease of native coronary artery without angina pectoris; E78.00 Pure hypercholesterolemia, unspecified; Z87.891 Personal history of nicotine dependence; Z79.899 Other long term (current) drug therapy
CPT/HCPCS: 36415; 71045; 80048; 83880; 84484; 85025; 85610; 85730; 93005; 99284; A9270; J3490

== ENCOUNTER 2022-08-16 10:07 | Emergency (ER) | payer MEDICARE, BC ==
[2022-08-16] MEDS ORDERED: Sodium Chloride 0.9% 10 ML Syringe FLUSH PRN (11:26)
[2022-08-16 11:40] LABS: HEMATOCRIT 32.1 % (38.4-49.7); IMMATURE GRAN ABSOLUTE AUTO 0.04 K/uL (0.00-0.23); IMMATURE GRAN PERCENT AUTO 0.9 % (0.0-0.7); LYMPHOCYTES ABSOLUTE AUTO 0.21 K/uL (0.8-3.3); LYMPHOCYTES PERCENT AUTO 4.6 % (11.4-47.7); MEAN CORPUSCULAR HGB CONC 31.2 g/dL (31.6-35.5); MEAN CORPUSCULAR VOLUME 89.9 fL (81.4-99.0); MONOCYTES PERCENT AUTO 8.7 % (3.3-12.6); NEUTROPHILS ABSOLUTE AUTO 3.96 K/uL (1.0-7.6); NEUTROPHILS PERCENT AUTO 85.8 % (40.0-78.1); PLATELET COUNT,PLT 147 K/uL (130-375); RED BLOOD CELL COUNT 3.57 M/uL (4.14-5.76); WHITE BLOOD CELL COUNT,WBC 4.6 K/uL (3.2-11.0)
[2022-08-16 12:07] LABS: ALANINE AMINOTRANSFERASE,ALT 26 U/L (12-78); ALBUMIN 3.6 g/dL (3.4-5.0); ALKALINE PHOSPHATASE 157 U/L (46-116); ASPARTATE AMNIOTRANSFERASE,AST 23 U/L (15-37); BILIRUBIN TOTAL 0.8 mg/dL (0.2-1.0); BLOOD UREA NITROGEN,BUN 61 mg/dL (7-18); CALCIUM 9.2 mg/dL (8.5-10.1); CARBON DIOXIDE,CO2 21 mmol/L (21-32); CHLORIDE,CL 100 mmol/L (100-108); ESTIMATED GFR 16 mL/min (>60); GLUCOSE RANDOM 100 mg/dL (74-106); PRO B-TYPE NATRIUR PEPT,BNPPRO 33031 pg/mL (5-450); PROTEIN TOTAL,TP 7.3 g/dL (6.4-8.2); SODIUM,NA 138 mmol/L (140-148); TROPONIN I HIGH SENSITIVITY 58.6 pg/mL (<=60.3)
[2022-08-16 12:09] LABS: CREATININE 3.7 mg/dL (0.8-1.3)
[2022-08-16 15:24] VITALS: BP 127/67; PULSE 87
== END 2022-08-16 17:27 ==
LOC: JP.ED 10:07
DX: I35.0 Nonrheumatic aortic (valve) stenosis (principal); N17.9 Acute kidney failure, unspecified; I13.0 Hypertensive heart and chronic kidney disease with heart failure and stage 1 through stage 4 chronic kidney disease, or unspecified chronic kidney disease; I50.33 Acute on chronic diastolic (congestive) heart failure; N18.32 Chronic kidney disease, stage 3b; D63.1 Anemia in chronic kidney disease; E78.00 Pure hypercholesterolemia, unspecified; Z88.8 Allergy status to other drugs, medicaments and biological substances; Z79.02 Long term (current) use of antithrombotics/antiplatelets; Z79.899 Other long term (current) drug therapy; Z87.891 Personal history of nicotine dependence
CPT/HCPCS: 36415; 71045; 71045-26; 80053; 83880; 84484; 85025; 99285